=== PATIENT | male | born 1955 | race Caucasian/White ===

== ENCOUNTER 2025-04-18 17:59 | Inpatient (IN) | payer MEDICARE, OTHER, SELFPAY ==
[2025-04-18] VITALS (9 sets, daily range): BP systolic 173–234; BP diastolic 79–121; BMI 26.4; BMI 25.0
[2025-04-18 15:19] LABS: Hematocrit 41.0 % (39.0-52.0); Hemoglobin 13.5 g/dL (13.0-18.0); Mean Corp Hgb Conc. 32.9 g/dL (33.0-37.0); Mean Corpuscular Volume 89.3 fL (80.0-94.0); Nucleated Red Blood Cells % 0 % (-); Platelet Count 481 10^3/uL (130-400); Red Cell Dist. Width 12.0 % (11.5-14.5)
[2025-04-18 15:42] LABS: Troponin I 0.022 ng/ml
[2025-04-18 15:43] LABS: ALT (SGPT) 23 U/L (0-50); AST (SGOT) 29 U/L (17-59); Albumin 3.9 g/dl (3.5-5.0); Alkaline Phosphatase 93 U/L (38-126); Blood Urea Nitrogen 79 mg/dl (9-20); Calcium 9.2 mg/dl (8.4-10.2); Carbon Dioxide 19 mmol/L (22-30); Chloride 106 mmol/L (98-107); Glucose 113 mg/dl (70-99); Potassium 5.5 mmol/L (3.5-5.1); Sodium 137 mmol/L (135-145); Total Protein 6.7 g/dl (6.3-8.2); eGFR 9.30
--- NOTE | 2025-04-18 16:11 | ED.GENMED ---
History of Present Illness
<Rock Sun PA-C - Last Filed: 04/18/25 19:49>
General
Chief Complaint: Malaise
Time Seen by Provider: 04/18/25 15:55
History of Present Illness
History of Present Illness:
69-year-old male with no known past medical history presents to the emergency department upon referral from the [facility] due to severe hypertension and malaise. The patient reports feeling fatigued with general malaise for the
past 2 to 3 months. He denies any chest pain or shortness of breath. No prior history of hypertension. He does admit to difficulty urinating as well as difficulty emptying his bowels during this time as well, indicates that he has
significant nocturia and urinary dribbling. He does report weight loss is a product of poor p.o. intake. Denies illicit substance use, alcohol use, or [id number] NSAID use
Review of Systems
<Rock Sun PA-C - Last Filed: 04/18/25 19:49>
Review of Systems
Allergies reviewed?: Yes
All Other Systems: ROS reviewed and negative except as documented in HPI and ROS
Phy Exam
<Rock Sun PA-C - Last Filed: 04/18/25 19:49>
Physical Exam
Physical Exam:
GEN: Well appearing, NAD, WDWN
HEENT: Oral mucosa moist, no scleral icterus
Cardiac: Irregular, controlled rate, no murmur
Lung: No respiratory distress, no tachypnea, lungs clear to auscultation bilaterally
Abdomen: Moderately distended, grossly nontender, no rigidity
MSK: No gross deformity or injuries
Skin: Good color, no pallor or jaundice, no rashes
Neuro: AO x3, moves all extremities freely
Psych: Calm, cooperative
Course
<Rock Sun PA-C - Last Filed: 04/18/25 19:49>
Orders/Labs/Results
Orders:
Orders
04/18/25 14:53
EKG [Electrocardiogram (*1)] Urgent
Reason for Study: Abnormal EKG
EKG- Treatment ONCE
04/18/25 15:07
Complete Blood Count/With Diff Urgent
Comprehensive Metabolic Panel Urgent
Magnesium Urgent
Troponin I Urgent
04/18/25 16:10
Rodriguez Placement- Treatment ONCE
Reason for insertion: Acute Retention
0.9% Sodium Chloride 1000 ml [Nss] 1,000 ml IV BOLUS
Calcium Gluconate 1 gram/100mL [Calcium Gluconate] 1 gram in 100 ml IV ONCE
04/18/25 16:14
Tamsulosin [Flomax] 0.4 mg PO NOW STA
04/18/25 16:28
Urinalysis Reflex To Culture Urgent
Date Specimen was Collected: 04/18/25
Time Specimen was Collected: 16:19
Urine Microscopic Reflex Cult Urgent
Venous Blood Gas Urgent
%Oxygen/Room Air: 97
Urine Culture Urgent
SANDRA Source: U
Specimen Description:
Date Specimen was Collected: 04/18/25
Time Specimen was Collected: 16:19
04/18/25 17:31
Labetalol HCl [Trandate] 10 mg IV Q6HPRN PRN
04/18/25 17:32
Abdomen/Pelvis wo Contrast CT [CT Abd/pelvis Wo Iv Cont] Urgent
Comment:
Reason For Exam: ANGELINE, abdominal bloating
04/18/25 17:33
Admit/Transfer Patient As Directed
Co-Sign Provider:
Level of Care: Inpatient admission
Assign to:: Telemetry
Physician / Group: casey
Diagnosis: ANGELINE
Reason for Telemetry: Arrhythmia
Date to Stop Telemetry: 04/21/25
Time to Stop Telemetry: 11:00
Reason for Hospitalization: ANGELINE
Expected length of stay greater than two midnights?: Yes
ELOS- Estimated Length of Stay in days: 2
I certify the patient meets the requirements for IP care: Yes
04/18/25 17:34
Code Status As Directed
Resuscitation Status: Full Code
PRN Pain Medication Management As Directed
May give lesser potent ordered pain med per pt: Yes
preference::
Protocol:: Medication orders for pain may be administered in a
manner that supports deferring to patient preference
when the pt is:
- Requesting an ordered lesser potent pain medication.
Least to most potent pain medications are defined
as: acetaminophen < NSAID < tramadol < opioids
(morphine, oxycodone, hydromorphone).
- Requesting a lesser dose of the same medication IF
ORDERED.
- Requesting a less intrusive route of administration
if both routes are prescribed by the provider (PO <
IV).
04/18/25 17:51
Add On- LAB Routine
Tests Added?: mag
04/21/25 11:00
DC Protocol for Telemetry ONCE
Abnormal Lab Results
04/18/25 04/18/25
15:07 16:28
WBC 15.6 H 10^3/uL
(4.8-10.8)
RBC 4.59 L 10^6/uL
(4.70-6.10)
MCHC 32.9 L g/dL
(33.0-37.0)
Plt Count 481 H 10^3/uL
(130-400)
Abs Immat Gran (auto) 0.1 H 10^3/uL
(0-0.05)
Absolute Neuts (auto) 12.2 H 10^3/uL
(1.4-6.5)
Absolute Monos (auto) 1.7 H 10^3/uL
(0.1-0.6)
Immature Gran % 0.6 H %
(0-0.5)
Neutrophils % 78.2 H %
(42.2-75.2)
Lymphocytes % 9.2 L %
(20.5-51.1)
Monocytes % 11.1 H %
(1.7-9.3)
VBG pCO2 31 L mmHg
(35-48)
VBG pO2 184 H mmHg
(30-50)
VBG HCO3 19.6 L mmol/L
(22-27)
Potassium 5.5 H mmol/L
(3.5-5.1)
Carbon Dioxide 19 L mmol/L
(22-30)
BUN 79 H mg/dl
(9-20)
Creatinine 6.1 H* mg/dL
(0.7-1.3)
Glucose 113 H mg/dl
(70-99)
Magnesium 2.5 H mg/dl
(1.6-2.3)
Ur Occult Blood Reflex 3+ A
(Negative)
Leukocyte Esterase Rfl 2+ A
(Negative)
Urine RBC 3-6 A /HPF
(0-2)
Urine Bacteria (Reflex) Few A
(Negative)
04/18/25 15:07
04/18/25 15:07
Vital Signs
Initial and Last Documented VS:
Initial Vital Signs
Temp Pulse Resp BP Pulse Ox
97.9 F 57 18 234/98 98
04/18/25 14:59 04/18/25 14:59 04/18/25 14:59 04/18/25 14:59 04/18/25 14:59
Last Documented Vital Signs
Temp Pulse Resp BP Pulse Ox
97.9 F 96 15 190/85 95
04/18/25 14:59 04/18/25 18:30 04/18/25 18:30 04/18/25 18:30 04/18/25 18:30
<Chaparro Stovall, DO - Last Filed: 04/18/25 16:15>
Orders/Labs/Results
Orders:
Orders
04/18/25 14:53
EKG [Electrocardiogram (*1)] Urgent
Reason for Study: Abnormal EKG
EKG- Treatment ONCE
04/18/25 15:07
Complete Blood Count/With Diff Urgent
Comprehensive Metabolic Panel Urgent
Magnesium Urgent
Troponin I Urgent
04/18/25 16:10
Rodriguez Placement- Treatment ONCE
Reason for insertion: Acute Retention
0.9% Sodium Chloride 1000 ml [Nss] 1,000 ml IV BOLUS
Calcium Gluconate 1 gram/100mL [Calcium Gluconate] 1 gram in 100 ml IV ONCE
04/18/25 16:14
Tamsulosin [Flomax] 0.4 mg PO NOW STA
04/18/25 16:28
Urinalysis Reflex To Culture Urgent
Date Specimen was Collected: 04/18/25
Time Specimen was Collected: 16:19
Urine Microscopic Reflex Cult Urgent
Venous Blood Gas Urgent
%Oxygen/Room Air: 97
Urine Culture Urgent
SANDRA Source: U
Specimen Description:
Date Specimen was Collected: 04/18/25
Time Specimen was Collected: 16:19
04/18/25 17:31
Labetalol HCl [Trandate] 10 mg IV Q6HPRN PRN
04/18/25 17:32
Abdomen/Pelvis wo Contrast CT [CT Abd/pelvis Wo Iv Cont] Urgent
Comment:
Reason For Exam: ANGELINE, abdominal bloating
04/18/25 17:33
Admit/Transfer Patient As Directed
Co-Sign Provider:
Level of Care: Inpatient admission
Assign to:: Telemetry
Physician / Group: veldanda
Diagnosis: ANGELINE
Reason for Telemetry: Arrhythmia
Date to Stop Telemetry: 04/21/25
Time to Stop Telemetry: 11:00
Reason for Hospitalization: ANGELINE
Expected length of stay greater than two midnights?: Yes
ELOS- Estimated Length of Stay in days: 2
I certify the patient meets the requirements for IP care: Yes
04/18/25 17:34
Code Status As Directed
Resuscitation Status: Full Code
PRN Pain Medication Management As Directed
May give lesser potent ordered pain med per pt: Yes
preference::
Protocol:: Medication orders for pain may be administered in a
manner that supports deferring to patient preference
when the pt is:
- Requesting an ordered lesser potent pain medication.
Least to most potent pain medications are defined
as: acetaminophen < NSAID < tramadol < opioids
(morphine, oxycodone, hydromorphone).
- Requesting a lesser dose of the same medication IF
ORDERED.
- Requesting a less intrusive route of administration
if both routes are prescribed by the provider (PO <
IV).
04/18/25 17:51
Add On- LAB Routine
Tests Added?: mag
04/21/25 11:00
DC Protocol for Telemetry ONCE
Abnormal Lab Results
04/18/25 04/18/25
15:07 16:28
WBC 15.6 H 10^3/uL
(4.8-10.8)
RBC 4.59 L 10^6/uL
(4.70-6.10)
MCHC 32.9 L g/dL
(33.0-37.0)
Plt Count 481 H 10^3/uL
(130-400)
Abs Immat Gran (auto) 0.1 H 10^3/uL
(0-0.05)
Absolute Neuts (auto) 12.2 H 10^3/uL
(1.4-6.5)
Absolute Monos (auto) 1.7 H 10^3/uL
(0.1-0.6)
Immature Gran % 0.6 H %
(0-0.5)
Neutrophils % 78.2 H %
(42.2-75.2)
Lymphocytes % 9.2 L %
(20.5-51.1)
Monocytes % 11.1 H %
(1.7-9.3)
VBG pCO2 31 L mmHg
(35-48)
VBG pO2 184 H mmHg
(30-50)
VBG HCO3 19.6 L mmol/L
(22-27)
Potassium 5.5 H mmol/L
(3.5-5.1)
Carbon Dioxide 19 L mmol/L
(22-30)
BUN 79 H mg/dl
(9-20)
Creatinine 6.1 H* mg/dL
(0.7-1.3)
Glucose 113 H mg/dl
(70-99)
Magnesium 2.5 H mg/dl
(1.6-2.3)
Ur Occult Blood Reflex 3+ A
(Negative)
Leukocyte Esterase Rfl 2+ A
(Negative)
Urine RBC 3-6 A /HPF
(0-2)
Urine Bacteria (Reflex) Few A
(Negative)
04/18/25 15:07
04/18/25 15:07
Vital Signs
Initial and Last Documented VS:
Initial Vital Signs
Temp Pulse Resp BP Pulse Ox
97.9 F 57 18 234/98 98
04/18/25 14:59 04/18/25 14:59 04/18/25 14:59 04/18/25 14:59 04/18/25 14:59
Last Documented Vital Signs
Temp Pulse Resp BP Pulse Ox
97.9 F 96 15 190/85 95
04/18/25 14:59 04/18/25 18:30 04/18/25 18:30 04/18/25 18:30 04/18/25 18:30
<Rock Sun PA-C - Last Filed: 04/18/25 19:49>
MDM/Problems Addressed
MDM/Problems Addressed:
Patient's acute renal failure is likely obstructive due to BPH with retention. Rodriguez was placed with greater than 1 L of urine output. Blood pressure did transiently improve in the ED, at this time no evidence for endorgan damage as I do not
suspect that his nephropathy is hypertensive in nature and thus we will avoid IV antihypertensives as his blood pressure elevation is likely longstanding. Will be admitted to the hospitalist service for further management
<Rock Sun PA-C - Last Filed: 04/18/25 19:49>
Comment
Comment:
EKG independently interpreted by me shows NSR w/ bigeminy PVCs
*Pulse Oximetry
SaO2: 98
Oxygen Mode of Delivery: Room air
Patient hypoxic: no
*Critical Care Note
Total Time (30-74mins, 75-104mins- exclusive of procedures): Not Applicable
ED Attending Note
<Rock Sun PA-C - Last Filed: 04/18/25 19:49>
-
Portions of this chart may have been created with voice recognition software.� Occasional wrong word or��sound alike� substitutions may have occurred due to the inherent limitations of voice recognition software.
<Chaparro Stovall DO - Last Filed: 04/18/25 16:15>
ED Attending Note
Patient seen and examined by attending physician: Yes
I performed the substantive portion of visit, reviewed & personally made and approve the management plan that is documented in note by myself or JAVY.: Yes
ED Attending Note:
I have seen and evaluated the patient with a [id number] encounter. I have spoken to the advance practicer provider and involved in the medical history, the physical exam, medical decision making.
Evaluation and management service: agree unless noted differently below.
Results interpretation: agree unless noted differently below.
Focused HPI: 69-year-old male presenting for generalized weakness and fatigue and intermittent urinary incontinence. Patient was seen at his doctor's office and sent to the emergency department
Physical exam: Sitting bed comfortably. Palpable bladder
Medical Decision Making: Patient is exhibiting signs of overflow incontinence. Will place urinary catheter. Patient has acute renal failure which is likely prerenal from likely prostate issues. Will give dose of Flomax and ultimately admit
Discharge Plan
Departure
Patient Disposition: Admit
Date of Disposition: 04/18/25
Time of Disposition: 16:59
Admit to: Telemetry
Presentation/result/management discussed w/ accepting MD/DO: Hospitalist
Discharge Problem:
Acute renal failure, Acute hyperkalemia, Acute urinary retention
Interventions
Interventions:
*Risk Screen - Suicide Last Done: 04/18/25 14:59
*General Assessment Last Done: 04/18/25 14:59
*Neglect/Abuse Screening Last Done: 04/18/25 14:59
*ED- Fall Risk Assessment Last Done: 04/18/25 14:59
*ED COVID-19 Vaccine History Last Done: 04/18/25 14:59
*ED Influenza Vaccine History Last Done: 04/18/25 14:59
[2025-04-18] MEDS: FLOMAX 0.4 MG PO (16:19)
[2025-04-18] MEDS: CALCIUM GLUCONATE 100 IV (16:19)
[2025-04-18] MEDS: NSS 1000 IV ×2 (16:28→20:40)
[2025-04-18 16:32] LABS: Venous Blood Gas B.E. -4.0 mmol/L (-4 to +4); Venous Blood Gas O2 Sat % 100.0 %
[2025-04-18 16:44] LABS: Urine Character Clear (Clear)
[2025-04-18 16:51] LABS: Urine Squamous Cell 0-2 /LPF (Few)
--- NOTE | 2025-04-18 17:44 | HPS.HSE ---
Addendum entered and electronically signed by Pedro Wade MD 04/18/25 21:02:
CT abdomen pelvis shows very large 14.6 cm left renal cell carcinoma. 1.9 cm mass in the right kidney possibly renal cell carcinoma. Metastatic retroperitoneal lymphadenopathy. Moderate acute right hydroureteronephrosis and moderate acute left
hydroureter secondary to bilateral ureteral obstructions at the level of the urinary bladder. Severe thickening of the urinary bladder suggesting malignancy. 2.19 m mass protruding posteriorly for the prostate gland suggesting prostate cancer.
5.1 cm lytic osseous metastasis in the sacrum extending into the sacral spinal canal.
Discussed findings with urology who thinks that this appears to be metastatic renal cell carcinoma and also advanced prostate cancer given sacral bone lesion obstruction of both ureters. Recommends checking PSA in the a.m. Maintain Rodriguez catheter.
IR to be consulted for bilateral PCN placement given ANGELINE and obstructive uropathy and stent placement highly likely to fail.
Oncology consulted.
Addendum entered and electronically signed by Pedro Wade MD 04/18/25 17:52:
Patient with urinary retention on bladder scan. Greater than 1L drainage after placement of Rodriguez.
Original Note:
Family Physician
-
Family Physician: * NONE
Chief Complaint
-
urinary retention
History of Present Illness
69-year-old male with past medical history of slight hypertension, periodontal disease presenting from residency clinic due to severe hypertension and malaise. He does not see doctors. Malaise has been ongoing for several months. He has lost 20
pounds in the past several months with decreased appetite. He has been having abdominal bloating and distention and generalized discomfort. He has been having urinary retention and strains to urinate and has frequent urination at nighttime with
dribbling. A few months ago he had some rectal bleeding only 1 time.
He states that he has a history of high blood blood that was only slightly high previously. Never took any medication.
He denies any chest pain or shortness of breath or palpitations or dizziness.
His sister had breast cancer. His father had bladder cancer.
He denies smoking or drugs. Drinks alcohol very rarely.
Medical History
Past Medical History
Past Medical History: Reports Other (slight hypertension)
Past Surgical History: Reports Other (Back cyst removal)
Social History
Tobacco: Non-smoker
Alcohol: None
Drug: None
Family History
Family History: Not pertinent
Allergies / Home Medications
Allergies reflects when Allergies were last updated in [facility].
Home Medications with original date entered in [facility]
Allergy/Medication List:
Allergies
Allergy/AdvReac Type Severity Reaction Status Date / Time
No Known Allergies Allergy Unverified 04/18/25 14:59
Home Medications
Vital Prostate Support 2 tab PO DAILY Supplement 04/18/25
Review of Systems
-
History Source: Patient
A 12 point ROS was completed and negative except as noted: Yes
Constitutional: Reports No Symptoms
EENT: Reports No Symptoms
Respiratory: Reports No Symptoms
Cardiac: Reports No Symptoms
Abdomen/GI: Reports See HPI
: Reports See HPI
Musculoskeletal: Reports No Symptoms
Skin: Reports No Symptoms
Neurological: Reports No Symptoms
Endocrine: Reports No Symptoms
Hematologic/Lymphatic: Reports No Symptoms
Psych: Reports No Symptoms
Physical Exam
Vital Signs
Vital Signs
Temp Pulse Resp BP Pulse Ox
97.9 F 110 17 222/94 96
04/18/25 14:59 04/18/25 17:30 04/18/25 17:30 04/18/25 17:00 04/18/25 17:30
Physical Exam
General: Well Developed, Well Nourished and No Apparent Distress
HEENT: NormoCephalic, Moist mucous membranes and Atraumatic
Respiratory: Clear
Cardiac: S1/S2 and Regular Rhythm; No Murmur or Rub
GI: Soft, Non Tender, Non Distended and Normal Bowel Sounds; No Organomegaly
Rectal: Deferred by Provider
Musculoskeletal: No Clubbing, No Cyanosis and No Edema
Skin: No Rash
Neuro: Nonfocal/grossly intact
Laboratory Results
-
04/18/25 15:07
04/18/25 15:07
Laboratory Results
Total Bilirubin 0.5 mg/dl (0.2-1.3) 04/18/25 15:07
AST 29 U/L (17-59) 04/18/25 15:07
ALT 23 U/L (0-50) 04/18/25 15:07
Alkaline Phosphatase 93 U/L (38-126) 04/18/25 15:07
Troponin I 0.022 ng/ml 04/18/25 15:07
Data Reviewed
-
Lab Data: Labs Reviewed by me
Old Records: Reviewed
Impression/Plan
-
IMPRESSION:
PLAN:
# Acute kidney injury likely postobstructive likely BPH
# Hyperkalemia
-Potassium 5.5
-Urinalysis unremarkable
-IV fluids
-Tamsulosin started
- Rodriguez catheter placed
- Check CT abdomen pelvis without IV contrast due to concern for underlying obstructive process/malignancy
# Hypertensive urgency likely from urinary retention/longstanding hypertension
-No symptoms associated with
- EKG shows sinus tachycardia with frequent PVCs suggesting bigeminy
- As needed labetalol
- Check echo
# Bigeminy possibly secondary to hyperkalemia
-No symptoms
- Check magnesium
- Cardiology consulted
# Isolated rectal bleeding few months ago
- Concern for underlying malignancy
# Weight loss
- Concern for underlying malignancy
History of constipation
- Had bowel movement today and every day this week
Periodontal disease
Full code
DVT prophylaxis�heparin
Regular diet
[2025-04-18] MEDS: TRANDATE 10 MG IV ×2 (18:05→20:37)
[2025-04-18 18:26] LABS: Magnesium 2.5 mg/dl (1.6-2.3)
--- NOTE | 2025-04-18 22:44 | PTCARENOTE ---
2029-pt admitted to [facility]-2, pt ambulated to bed, placed on tele #24, oriented to call renee and reviewed poc. Pt's b/p 198/96-98, finney draining bloody urine. SOLDER TECHNICIAN notified, pictures of finney drainage sent. Trandate 10mg ivp given. see aug. Repeat b/p
at 2225 174/79-100. clots noted in finney, rn medical inpatient services notified and picture sent.
--- NOTE | 2025-04-18 23:04 | CONS.URO ---
Consultation
-
Date/Time Consultation Requested: 04/18
Date/Time Consultation Performed: 04/18
Requesting Provider: Hospitalist
Performing Provider: Celestina
Reason for Consultation: large left renal mass w/ RP LAD, prostate mass w/ osseous metastasis
Medical History
History of Present Illness
69M referred from [facility] resident clinic due to severe HTN and malaise (of several months' duration).
Notes 20 lb weight loss in last several months with dereased appetite.
Noted abdominal bloating, distention and generalized discomfort.
Notes voiding symptoms:
+ straining to void
+ nocturia
+ dribbling
+ rectal bleeding x1 (few months prior)
Of note, patient 'does not see doctors.'
Has not had regular medical care of preventative care (prostate cancer, etc).
Past Medical History
Past Medical History: HTN
Past Surgical History: None
Social History
Tobacco: Non-smoker
Alcohol: Occasional
Drug: None
Personal:
Living: With Family
Family History
Family History: Cancer (mother - breast cancer, father - bladder cancer)
Allergies/Home Medications
Allergies
Allergy/AdvReac Type Severity Reaction Status Date / Time
No Known Allergies Allergy Unverified 04/18/25 14:59
Home Medications
�Medication �Instructions �Recorded �Confirmed �Type
Vital Prostate Support 2 tab PO DAILY Supplement 04/18/25 04/18/25 History
Review of Systems
-
History Source: Patient and Family
A 12 point Review of Systems was completed except as noted: Yes
Constitutional: Reports Weight Loss and Fatigue
EENT: Reports No Symptoms
Respiratory: Reports No Symptoms
Cardiac: Reports No Symptoms
Abdomen/GI: Reports Anorexia
: Reports Frequency and Difficulty Voiding
Musculoskeletal: Reports No Symptoms
Skin: Reports No Symptoms
Neurological: Reports No Symptoms
Endocrine: Reports No Symptoms
Hematologic/Lymphatic: Reports No Symptoms
Psych: Reports No Symptoms
Physical Exam
Vital Signs
Vital Signs
Temp Pulse Resp BP Pulse Ox
98.9 F 100 16 174/79 97
04/18/25 20:07 04/18/25 22:23 04/18/25 20:07 04/18/25 22:23 04/18/25 20:07
Lab / Testing Results
Laboratory Results
04/18/25 15:07
04/18/25 15:07
Physical Exam
General: Poor Appetite
HEENT: Normocephalic and Anicteric
Respiratory: Non Labored Respirations
Cardiac: S1/S2
Breast: N/A
GI: Soft, Non Tender and Non Distended
Rectal: Deferred by Provider
Genito-urinary: No Costovertebral Tend, Bloody Urine and Rodriguez Catheter
Musculoskeletal: No Edema
Neuro: AO x 3, No Motor Deficits and Nonfocal/Grossly Intact
Hematologic/Lymphatic: No Lymphadenopathy
Psych: Calm and Intact Judgement
Assessment / Plan
-
ANGELINE
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
Acute urinary retention
Hematuria
Suspected metastatic left RCC - RP LAD
Small right renal mass
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
- Maintain Rodriguez catheter to drainage
- Trend BMP for post-obstructive diuresis
- Trend Cr
- PSA w/ AM labs
- Medical Oncology consult for suspected metastatic RCC and metastatic prostate cancer
- IR consult for evaluation of bilateral PCN placement (stent placement w/ high likelihood of failure due to malignant extrinsic compression of ureters from prostate cancer)
Data Reviewed
-
Total Time Spent with Patient (in minutes): 40
CT Scan: Image personally visualized and interpreted, Report Reviewed by Me, Discussed with Physician and Discussed with Patient
Lab Data: Labs Reviewed, Discussed with Physician and Discussed with Patient
Old Records: Reviewed
[2025-04-19] VITALS (8 sets, daily range): BP systolic 131–178; BP diastolic 69–107; BMI 24.7
--- NOTE | 2025-04-19 03:33 | PTCARENOTE ---
0230 LITERACY TEACHER notified Tele tracing Sinus alexandru to Sinus tach with vent bigeminy. pt asymptomatic. Also reviewed labs, elevated K and elevated Mag. Pt in for 0600 labs and cardiology consulted.
[2025-04-19 05:40] LABS: Hematocrit 39.8 % (39.0-52.0); Hemoglobin 12.8 g/dL (13.0-18.0); Mean Corp Hgb Conc. 32.2 g/dL (33.0-37.0); Mean Corpuscular Volume 90.9 fL (80.0-94.0); Nucleated Red Blood Cells % 0 % (-); Platelet Count 436 10^3/uL (130-400); Red Cell Dist. Width 11.9 % (11.5-14.5)
[2025-04-19] MEDS: NSS 1000 IV ×2 (05:48→18:32)
[2025-04-19 06:10] LABS: ALT (SGPT) 20 U/L (0-50); AST (SGOT) 25 U/L (17-59); Albumin 3.5 g/dl (3.5-5.0); Alkaline Phosphatase 87 U/L (38-126); Blood Urea Nitrogen 65 mg/dl (9-20); Calcium 9.1 mg/dl (8.4-10.2); Carbon Dioxide 23 mmol/L (22-30); Chloride 111 mmol/L (98-107); Estimated Creatinine Clearance 17 ml/min; Glucose 112 mg/dl (70-99); Magnesium 2.3 mg/dl (1.6-2.3); Potassium 5.5 mmol/L (3.5-5.1); Sodium 141 mmol/L (135-145); Total Protein 6.0 g/dl (6.3-8.2); eGFR 13.05
--- NOTE | 2025-04-19 07:25 | W.PN.URO.CBU ---
Addendum entered and electronically signed by Francis Oscar MD 04/19/25 12:35:
Of note - will consider Rodriguez catheter removal after bilateral PCN placement by IR before discharge.
Will need outpatient cystoscopy to evaluate bladder (r/o urothelial carcinoma vs. extension of prostate cancer).
Original Note:
Today's Communication / Plan
-
- Maintain Rodriguez catheter to drainage
- Trend lytes/Cr for post-obstructive diuresis
- PSA, JOE, and CT imaging c/w metastatic prostate cancer
- Medical Oncology consult for suspected metastatic RCC and metastatic prostate cancer
- Pending IR evaluation for bilateral PCN placement (stent placement w/ high likelihood of failure due to malignant extrinsic compression of ureters from prostate cancer)
D/w patient this AM.
D/w RN.
Assessment / Plan
-
ARF
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
Acute urinary retention
Hematuria
Suspected metastatic left RCC - RP LAD
Small right renal mass
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
Cr downtrending w/ catheter decompression
JOE performed this AM => hard, nodular prostate gland w/ extension into rectum c/w prostate tumor
PSA 384 (04/19)
Diagnosis
-
Date of Service: April 19, 2025
-
Patient Diagnosis:
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
Acute urinary retention
Hematuria
Suspected metastatic left RCC - RP LAD
Small right renal mass
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
Subjective
-
Patient feeling 'much better' after catheter placement and IVFs.
NPO for IR procedure today.
Urine jose to pink in tubing - no clots.
Objective
-
Vital Signs
Temp Pulse Resp BP Pulse Ox
98.4 F 56 17 168/93 97
04/19/25 07:22 04/19/25 07:22 04/19/25 07:22 04/19/25 07:22 04/19/25 07:22
Intake and Output
04/18/25 04/19/25 04/20/25
06:59 06:59 06:59
Intake Total 1480 / 1480
Output Total 4980 / 4980
Balance -3500 / -3500
Intake:
Oral fluids 480 / 480
IV fluids (Total) 1000 / 1000
Output:
Urine, Rodriguez 4980 / 4980
Laboratory Results
04/19/25 05:08
04/19/25 05:08
Physical Exam
-
General - well developed, well nourished, no acute distress
Abdomen - soft, non-tender, non-distended
- Rodriguez catheter w/ jose to pink UOP w/o clots
JOE - HARD, NODULAR prostate gland c/w prostate cancer
Skin - warm & dry with no rash
Neuro - AOx3, no motor deficits
Extremities - no clubbing, no cyanosis, no edema
Care Review
Data Reviewed
Discussed with: Hospitalist and Nursing
CT Scan: Report Pers Reviewed and Image Pers Reviewed
Total Time Spent with Patient (in minutes): 35
--- NOTE | 2025-04-19 07:58 | W.PN.HOSP.TC ---
Addendum entered and electronically signed by Neva Thompson MD 04/19/25 19:09:
I saw and evaluated the patient independently. I reviewed and discussed the resident�s note and agree with findings and plan as documented by Dr. Frey.
GENERAL: well developed, well nourished, male in no apparent distress
HEENT:NC/AT
HEART: regular rate and rhythm, +S1, +S2
LUNGS : clear to auscultation bilaterally
ABDOM: soft, nontender, distended, + bowel sounds
EXT: no cyanosis, clubbing, or edema
NEUROLOGIC: grossly intact
: finney cath with bloody urine
Bilateral/kidney/prostate masses with lytic osseous lesions, and bladder thickening--highly suspicious for malignancy--rare to have 3 separate primary cancers (presuming renal cell, prostate, urothelial) vs primary with mets to others?--apprec
urology and oncology--spoke with IR, going for left kidney biopsy in AM--NPO post midnight--PSA 384--will need staging CTs--chest CT with tiny nodules--will likely need PET scan as outpt
Acute kidney injury-- postobstructive most likely with bilateral hydronephrosis--cont finney and IVF--creat on admission was 6.1--this AM down to 4.6--for right PCN in AM--cont to follow creat--cont tamsulosin
Hyperkalemia--likely from ANGELINE due to obstruction--no need for HD--cont IVF--considering Lokelma
Hypertensive urgency--BPs high (224/94)--again likely due to renal issues--cont amlodipine and PRN hydralazine--follow numbers--apprec cards--ECHO WNL
Bigeminy possibly secondary to hyperkalemia--resolved without intervention
Hematuria/Isolated rectal bleeding few months ago�could have been hematuria--Likely due to renal masses, prostate mass, and possible bladder cancer- trend CBC
Hx constipation- Had bowel movement today and every day this week
Hx Periodontal disease
code status--Full code
DVT prophylaxis�heparin discontinued
Original Note:
Today's Communication/Plan
-
Urology and oncology consulted for new kidney and prostate masses, as well as possible bladder malignancy given thickened bladder wall.
� Added CT chest for cancer staging
� PSA 384 high
Postrenal ANGELINE (hydroureteronephrosis with obstruction at the level of the bladder): Finney, tamsulosin, fluids
- Bilateral percutaneous nephrostomy stents anticipated today by IR
Cardiology consulted for bigeminy.
N.p.o. for IR
Hyperkalemia: Monitor CMP for resolution with addressing obstruction.
Hypertension: Amlodipine 5 mg daily and hydralazine 10 mg IV Q6 as needed
Assessment / Plan
Assessment / Plan
IMPRESSION:
Mr. Carter Stovall is a pleasant 69-year-old male with past medical history of mild hypertension, periodontal disease, who presented from residency clinic due to severe hypertension and malaise. He does not see doctors. Malaise has been ongoing for
several months. He has lost 20 pounds in the past several months with decreased appetite. He has been having abdominal bloating and distention and generalized discomfort. He has been having urinary retention and strains to urinate and has
frequent urination at nighttime with dribbling. A few months ago he had some rectal bleeding only 1 time.
He states that he has a history of high blood blood that was only slightly high previously. Never took any medication.
He denies any chest pain or shortness of breath or palpitations or dizziness.
His sister had breast cancer. His father had bladder cancer.
He denies smoking or drugs. Drinks alcohol very rarely.
ED Course:
CT A/P noncontrast:
1. VERY LARGE 14.6 cm LEFT RENAL CELL CARCINOMA.
2. 1.9 cm mass in the right kidney (possibly renal cell carcinoma).
3. Metastatic retroperitoneal lymphadenopathy.
4. MODERATE ACUTE RIGHT HYDROURETERONEPHROSIS and MODERATE ACUTE LEFT HYDROURETER secondary to bilateral ureteral obstructions at the level of the urinary bladder.
5. Severe diffuse thickening of the urinary bladder wall suggesting malignancy (URINARY BLADDER UROTHELIAL CARCINOMA). Finney catheter in the urinary bladder.
6. 2.9 cm mass protruding posteriorly from the prostate gland suggesting PROSTATE CANCER.
7. Small bilateral adrenal adenomas.
8. Severe diverticulosis in the sigmoid colon.
9. Varicoid bronchiectasis in the left lower lobe with a 2.5 cm pulmonary nodule which is likely peripheral endobronchial impaction (less likely pulmonary metastatic disease).
10. 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
PLAN:
#Bilateral kidney masses, prostate mass with lytic osseous lesions, and bladder thickening
Urology consulted
� PSA 384 high
Oncology consulted
� CT chest for cancer staging
CT abdomen pelvis without IV/PO contrast due to concern for underlying obstructive process/malignancy:
1. VERY LARGE 14.6 cm LEFT RENAL CELL CARCINOMA.
2. 1.9 cm mass in the right kidney (possibly renal cell carcinoma).
3. Metastatic retroperitoneal lymphadenopathy.
4. MODERATE ACUTE RIGHT HYDROURETERONEPHROSIS and MODERATE ACUTE LEFT HYDROURETER secondary to bilateral ureteral obstructions at the level of the urinary bladder.
5. Severe diffuse thickening of the urinary bladder wall suggesting malignancy (URINARY BLADDER UROTHELIAL CARCINOMA). Finney catheter in the urinary bladder.
6. 2.9 cm mass protruding posteriorly from the prostate gland suggesting PROSTATE CANCER.
7. Small bilateral adrenal adenomas.
8. Severe diverticulosis in the sigmoid colon.
9. Varicoid bronchiectasis in the left lower lobe with a 2.5 cm pulmonary nodule which is likely peripheral endobronchial impaction (less likely pulmonary metastatic disease).
10. 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
# Acute kidney injury; postobstructive
Urinalysis unremarkable
- IV fluids
- Tamsulosin started
- Finney catheter placed
IR consulted
� Bilateral percutaneous nephrostomy stent placement anticipated today. N.p.o.
# Hyperkalemia
Potassium 5.5
� Likely due to ANGELINE from bilateral hydroureter ureteral nephrosis (level obstruction of bladder)
- Planned to give Lokelma but held due to n.p.o. for IR
� Considering IV calcium gluconate, IV insulin with glucose, albuterol inhaler, patiromer if hyperkalemia does not resolve
� Telemetry
# Hypertensive urgency
Likely from renal masses. No symptoms associated with hypertension
� Since his heart rate was low on labetalol PRN, started amlodipine 5 mg PO daily and hydralazine PRN.
- Echo pending
� Considering consulting nephrology in the future if ANGELINE does not resolve adequately with post-renal obstruction relief with finney and anticipated percutaneous nephrostomy tubes
# Bigeminy possibly secondary to hyperkalemia
EKG shows sinus tachycardia with frequent PVCs suggesting bigeminy
No symptoms
Magnesium within normal limits
- Cardiology consulted
#Hematuria
#Isolated rectal bleeding few months ago�could have been hematuria
Likely due to renal masses, prostate mass, and possible bladder cancer
- trend CBC
Hx constipation
- Had bowel movement today and every day this week
Hx Periodontal disease
Full code
DVT prophylaxis�heparin
N.p.o. for percutaneous stent placement
Anticipated Discharge: > 48 hours
Subjective/Interval History
-
Date of Service: April 19, 2025
No acute events overnight. Patient denies chest pain, abdominal pain, pain anywhere else, palpitations, shortness of breath, lightheadedness, or difficulty voiding.
Since Finney bag had bloody urine, patient was asked if he has noticed bloody urine recently. He denies noting bloody urine recently.
Objective Data
-
Labs:
Laboratory Results
04/18/25 04/18/25 04/19/25
15:07 16:28 05:08
WBC 15.6 H 13.1 H
RBC 4.59 L 4.38 L
Hgb 13.5 12.8 L
Hct 41.0 39.8
MCV 89.3 90.9
MCH 29.4 29.2
MCHC 32.9 L 32.2 L
RDW 12.0 11.9
Plt Count 481 H 436 H
MPV 9.9 9.9
Abs Immat Gran (auto) 0.1 H 0.1 H
Absolute Neuts (auto) 12.2 H 10.6 H
Absolute Lymphs (auto) 1.4 1.2
Absolute Monos (auto) 1.7 H 1.2 H
Absolute Eos (auto) 0.1 0.1
Absolute Basos (auto) 0.0 0.0
Immature Gran % 0.6 H 0.8 H
Neutrophils % 78.2 H 80.5 H
Lymphocytes % 9.2 L 9.1 L
Monocytes % 11.1 H 9.0
Eosinophils % 0.6 0.4
Basophils % 0.3 0.2
Nucleated RBC % 0 0
VBG pH 7.41
VBG pCO2 31 L
VBG pO2 184 H
VBG HCO3 19.6 L
VBG O2 Sat (Jammie) 100.0
VBG Base Excess -4.0
VBG O2 Therapy
Sodium 137 141
Potassium 5.5 H 5.5 H
Chloride 106 111 H
Carbon Dioxide 19 L 23
BUN 79 H 65 H
Creatinine 6.1 H* 4.6 H*
Estimated Creat Clear 17
eGFR 9.30 13.05
Glucose 113 H 112 H
Calcium 9.2 9.1
Magnesium 2.5 H 2.3
Total Bilirubin 0.5 0.5
AST 29 25
ALT 23 20
Alkaline Phosphatase 93 87
Troponin I 0.022
Total Protein 6.7 6.0 L
Albumin 3.9 3.5
Urine Color Yellow
Urine Clarity Clear
Urine pH 5.0
Ur Specific Robinson 1.010
Urine Ketones Negative
Ur Occult Blood Reflex 3+ A
Urine Nitrite (Reflex) Negative
Urine Bilirubin Negative
Urine Urobilinogen Negative
Leukocyte Esterase Rfl 2+ A
Urine RBC 3-6 A
Urine WBC (Reflex) 6-10
Ur Squamous Epith Cells 0-2
Urine Bacteria (Reflex) Few A
Urine Glucose Negative
Urine Albumin (Reflex) Negative
Vital Signs:
Vital Signs
Temp Pulse Resp BP Pulse Ox
98.4 F 56 17 168/93 97
04/19/25 07:22 04/19/25 07:22 04/19/25 07:22 04/19/25 07:22 04/19/25 07:22
I&O
04/18/25 04/19/25 04/20/25
06:59 06:59 06:59
Intake Total 1480 / 1480
Output Total 4980 / 4980
Balance -3500 / -3500
Review of Systems
-
History Source: Patient
All other systems: Reviewed and negative
Physical Exam
-
General: Well Developed, Well Nourished, No Apparent Distress and Comfortable
HEENT: Normocephalic, Atraumatic, Anicteric, Nose Appears Normal and Ears Appear Normal
Respiratory: Clear to Auscultation
Cardiac: Irregular Rhythm (Persistent bigeminy)
GI: Soft, Nontender, Nondistended and Normal Bowel Sounds
Musculoskeletal: No Clubbing, No Cyanosis and No Edema
Skin: Warm and Dry
Neuro: Awake and Alert
Psych: Calm
[2025-04-19 08:27] LABS: PSA, Total - Screen 384.00 ng/ml (0.0-4.0)
[2025-04-19 08:52] LABS: INR 1.13; PT 14.8 Sec (11.4-14.6)
--- NOTE | 2025-04-19 09:16 | CON.CAR ---
Addendum entered and electronically signed by Pablo Medley DO 04/19/25 17:50:
I saw and examined the patient.
The Legal Administrator's note was reviewed and I agree with the note.
Comment:
Plan:
Patient with newly diagnosed prostate cancer with suspected metastasis complicated by urinary obstruction with need for bilateral ureteral stenting.
Patient had an episode of PVCs with ventricular bigeminy on the monitor. This has resolved without intervention.
If he has recurrent PVCs or ventricular bigeminy, could consider beta-josé miguel therapy, however he currently does not require treatment at this time. He does have sinus bradycardia on telemetry.
Check echo to evaluate for structural heart disease.
He was started on Norvasc by the primary service for hypertension. If he requires beta-josé miguel therapy, may need to hold calcium channel josé miguel therapy to give room for blood pressure.
Continue workup of his malignancy.
Discussed with his at bedside.
Original Note:
Consultation
Consultation Request
Date/Time Consultation Requested: 04/18/2025 at 1948
Date/Time Consultation Performed: 04/19/2025 at 1100
Requesting Provider: Dr. Thompson
Performing Provider: Dr. Medley
Reason for Consultation: Frequent PVCs
Medical History
-
History of Present Illness:
Patient was admitted with ANGELINE and suspected metastatic prostate cancer, cardiology is now consulted for PVCs. Patient himself evaluated at [facility] urgent care on 04/16/2025 for symptoms of fatigue, chills, decreased urination and weight loss.
Immediate workup was deferred to outpatient given concern for possible malignancy. Patient was seen by the [facility] primary care resident in their office on 04/18/2025 and was HTN at 220/98 and ECG showed frequent PVCs. Patient presented to the ER for
evaluation and was admitted after CT scan showed suspected malignant masses in the prostate extending into the bladder, rectum and metastatic disease into the sacrum. Repeat ECG showed PVCs and bigeminy. Telemetry has showed sinus bradycardia and
at other times PVCs with bigeminy. Patient denies any palpitations, chest pain or SOB. Patient chops his own firewood and has been chopping firewood and stacking it on his own without any chest pain or SOB, although he is more fatigued. He can go
up and down the stairs in his home without any symptoms. No previous cardiac testing. He used to work as a grade school teacher.
PMH:
None according to patient, although he does not follow with a primary care provider
Past Medical History
Past Medical History: Other (In HPI)
Past Surgical History: None
Social History
Tobacco: Non-Smoker
Alcohol: Occasional
Drug: None
Personal:
Living: With Family
Employment: Retired (He is a retired grade school teacher, he worked at [employer] right before he retired)
Family History
Family History: Cancer (Mother had ovarian cancer, father had bladder cancer)
Allergies / Home Medications
Allergy/AdvReac Type Severity Reaction Status Date / Time
No Known Allergies Allergy Unverified 04/18/25 14:59
�Medication �Instructions �Recorded �Confirmed �Type
Vital Prostate Support 2 tab PO DAILY Supplement 04/18/25 04/18/25 History
Review of Systems
-
History Source: Patient and Family ( sitting at bedside helping with HPI)
All other systems: Negative unless noted
Physical Exam
Vital Signs
Temp Pulse Resp BP Pulse Ox
98.4 F 56 17 168/93 97
04/19/25 07:22 04/19/25 07:22 04/19/25 07:22 04/19/25 07:22 04/19/25 07:22
GEN: NAD, AAO x 3
HEENT: EOMI, MMM
LUNGS: RA. CTA B/L, no wheeze
CV: Sinus bradycardia on telemetry. Reg, S1/S2, no murmur
ABD: Mildly distended, soft
EXT: No edema B/L LE, varicose veins B/L LE
NEURO: Gross non-focal
SKIN: No rash
Lab Results
04/19/25 05:08
04/19/25 05:08
Troponin I 0.022 ng/ml 04/18/25 15:07
Impression / Plan
-
PCP: None, saw [facility] primary care residency program on day of admission for new patient visit
Cardiology: None prior to admission
Impression:
Admitted with ANGELINE, weight loss and concern for malignancy 04/18/2025
ANGELINE
Urinary obstruction with B/L UVJ obstruction and hydroureteronephrosis due to malignant extrinsic compression from prostate CA
Suspected prostate CA with metastasis into the bladder, rectum and sacrum
Hyperkalemia
PVCs and bigeminy
HTN
Echo 04/19/2025: Study pending
Plan:
-Patient was admitted with ANGELINE and suspected metastatic prostate cancer, cardiology is now consulted for PVCs. Patient himself evaluated at [facility] urgent care on 04/16/2025 for symptoms of fatigue, chills, decreased urination and weight loss.
Immediate workup was deferred to outpatient given concern for possible malignancy. Patient was seen by the [facility] primary care resident in their office on 04/18/2025 and was HTN at 220/98 and ECG showed frequent PVCs. Patient presented to the ER for
evaluation and was admitted after CT scan showed suspected malignant masses in the prostate extending into the bladder, rectum and metastatic disease into the sacrum. Repeat ECG showed PVCs and bigeminy. Telemetry has showed sinus bradycardia and
at other times PVCs with bigeminy. Patient denies any palpitations, chest pain or SOB. Patient chops his own firewood and has been chopping firewood and stacking it on his own without any chest pain or SOB, although he is more fatigued. He can go
up and down the stairs in his home without any symptoms. No previous cardiac testing. He used to work as a grade school teacher.
-ECG reviewed by me is SR with PVCs and bigeminy. Telemetry reviewed by me is sinus bradycardia without ectopy.
-Long talk with patient and his sitting at the bedside. They are aware of suspected prostate cancer with metastatic disease into the bladder rectum and sacrum. They are also aware of the
-Patient with ANGELINE on admission in the setting of B/L UVJ obstruction with hydroureteronephrosis due to malignant extrinsic compression from suspected prostate cancer. Plan is for B/L percutaneous nephrostomy tubes to be placed in [facility] 04/19/2025.
-Cre was 6.1 on admission and is improved to 4.6 on 04/19/2025 with Rodriguez catheter placement and IVF's overnight
-Continues with hyperkalemia potassium is stable at 5.5. Follow-up BMP once percutaneous nephrostomy tubes replaced. If no improvement would consider nephrology consultation for additional management.
-Oncology has been consulted. Urology is following along as well and their note was reviewed by me on 04/19/2025
-With regards to PVCs, patient is currently sinus bradycardia without ectopy on telemetry. Ventricular bigeminy observed earlier. No evidence of sustained ventricular arrhythmia. No evidence of heart block.
-Check echo, pending EF could consider addition of Toprol-XL 12.5 mg daily to help suppress ectopy, but would need to follow on telemetry given sinus bradycardia at present.
-Unclear if patient will need any surgical intervention as part of his oncologic treatment. Patient reports that he can climb a flight of stairs without chest pain or SOB. He can stack firewood without chest pain or SOB. No resting chest pain or
SOB.
[2025-04-19] MEDS: NORVASC 5 MG PO (09:49)
--- NOTE | 2025-04-19 09:59 | CON.ONC ---
Documented by User: Carolyn Rudolph MD, Resident 04/19/25 14:59
Consultation
-
Date Consultation Requested: 04/18/25
Date Consultation Performed: 04/19/25
Requesting Provider: Pedro Wade MD
Performing Provider: Gilles Buckner MD; Klaudia, Carolyn Plunkett MD
Reason for Consultation: Multiple masses on CT concerning for metastases
Impression
Impression
Multiple abdominal/pelvic masses with lymphadenopathy identified on CT, primary origin remains undetermined
Urinary retention secondary to bilateral ureteral obstruction
ANGELINE
Hyperkalemia
Premature atrial complexes; bigeminy
Hypertension
Plan
Plan
-Given that the primary origin of the multiple masses found on CT remains unclear, will suggest an Interventional Radiology consult to determine best target area for biopsy of
either retroperitoneal node vs Sacral metastases---will await results.
--PSA 384, along with CT finding, concerning for prostatic cancer, but other origin cannot be ruled out at this time.
-Recommend a MRI lumbar/sacral spine for further assessment of the lytic osseous sacral lesions.
-Recommend neurosurgery consult to assess sacral lesion with spinal canal involvement
Patient History
History of Present Illness
Mr. Stovall is a 69-year-old male with a past medical history of hypertension (not on medications) who presents with lower abdominal pain and difficulty voiding.
Months prior to admission, he began experiencing lower abdominal pain described as a pressure-like sensation, which is relieved by voiding. Over the past few years, he has had progressive urinary tract symptoms, including frequency, urgency, and
decreased urinary output. He also notes nighttime urinary incontinence, which has led him to restrict food and fluid intake for fear that the increased abdominal pressure will worsen his incontinence; his sleep has since then been disrupted. He
reports an unintentional weight loss of approximately 25 pounds over the past few years.
His symptoms have worsened overtime, reporting a remote episode of rectal bleeding and hematuria in 2019 due to excessive straining. On day of admission, he reports that his abdominal pain became constant, and intractable, thus sought consult. He
denies dysuria, flank pain, back pain, weakness, or palpitations.
At time of consult, the patient reports that his abdominal pain has resolved with urinary catheterization.
CT (04/18/2025) showed:
1. 14.6 cm left renal mass
2. 1.9 cm mass in the right kidney
3. Metastatic retroperitoneal lymphadenopathy.
4. MODERATE ACUTE RIGHT HYDROURETERONEPHROSIS and MODERATE ACUTE LEFT HYDROURETER secondary to bilateral ureteral obstructions at the level of the urinary bladder.
5. Severe diffuse thickening of the urinary bladder wall suggesting malignancy (URINARY BLADDER UROTHELIAL CARCINOMA). Rodriguez catheter in the urinary bladder.
6. 2.9 cm mass protruding posteriorly from the prostate gland suggesting PROSTATE CANCER.
7. Small bilateral adrenal adenomas.
8. Severe diverticulosis in the sigmoid colon.
9. Varicoid bronchiectasis in the left lower lobe with a 2.5 cm pulmonary nodule which is likely peripheral endobronchial impaction (less likely pulmonary metastatic disease).
10. 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
Past-Medical/Surgical History
Hypertension
Patient Medication
�Medication �Instructions �Recorded �Confirmed �Last Taken �Type
Vital Prostate Support 2 tab PO DAILY Supplement 04/18/25 04/18/25 04/17/25 History
Active Medications
Generic Name Dose Route Start Last Admin
Trade Name Freq PRN Reason Stop Dose Admin
Amlodipine Besylate 5 mg 04/19/25 10:00 04/19/25 09:49
Amlodipine 5 Mg Tablet PO 05/17/25 09:59 5 mg
DAILY LIZET Administration
Hydralazine HCl 10 mg 04/19/25 09:07
Hydralazine 20 Mg/Ml Vial IV 05/17/25 09:06
Q6HPRN PRN
hypertensive urgency/emergency
Sodium Chloride 1,000 mls @ 100 mls/hr 04/18/25 19:48 04/19/25 05:48
Nss IV 1,000 mls
.Q10H LIZET Administration
Sodium Chloride 0 flush 04/18/25 20:00
Sodium Chloride 0.9% (Flush) Syringe IV 05/16/25 19:59
PER PROTOCOL LIZET
Review of Systems
-
History Source: Patient
Constitutional: Reports Weight Loss; Denies Fever, No Appetite or Weakness
EENT: Reports No Symptoms
Respiratory: Reports No Symptoms
Cardiac: Reports No Symptoms
GI: Denies Abdominal Pain, Nausea, Vomiting, Diarrhea or Constipated
: Reports Frequency, Difficulty Voiding and Urgency; Denies Dysuria or Flank Pain
Musculoskeletal: Denies Edema
Skin: Reports No Symptoms
Neuro: Reports No Symptoms
Hematologic/Lymphatic: Denies Bleeding
Physical Exam
-
General: Well Developed and No Apparent Distress; Negative Pain
Cardiology: Normal Sinus Rhythm (with bigeminy), S1 and S2
Pulmonary: Clear
GI: Soft and Other (firmness in left lower abdomen, non distended, nontender)
Genito-Urinary: No Costovertebral Tenderness and Bloody Urine
Musculoskeletal: No Edema
Extremities: Pulses Present
Skin: Warm
Psych: Calm
Labs
Lab Results
WBC 13.1 10^3/uL (4.8-10.8) H 04/19/25 05:08
RBC 4.38 10^6/uL (4.70-6.10) L 04/19/25 05:08
Hgb 12.8 g/dL (13.0-18.0) L 04/19/25 05:08
Hct 39.8 % (39.0-52.0) 04/19/25 05:08
MCV 90.9 fL (80.0-94.0) 04/19/25 05:08
MCH 29.2 pg (27.0-31.0) 04/19/25 05:08
MCHC 32.2 g/dL (33.0-37.0) L 04/19/25 05:08
RDW 11.9 % (11.5-14.5) 04/19/25 05:08
Plt Count 436 10^3/uL (130-400) H 04/19/25 05:08
MPV 9.9 fL (7.4-10.4) 04/19/25 05:08
Abs Immat Gran (auto) 0.1 10^3/uL (0-0.05) H 04/19/25 05:08
Absolute Neuts (auto) 10.6 10^3/uL (1.4-6.5) H 04/19/25 05:08
Absolute Lymphs (auto) 1.2 10^3/uL (1.2-3.4) 04/19/25 05:08
Absolute Monos (auto) 1.2 10^3/uL (0.1-0.6) H 04/19/25 05:08
Absolute Eos (auto) 0.1 10^3/uL (0-0.7) 04/19/25 05:08
Absolute Basos (auto) 0.0 10^3/uL (0-0.2) 04/19/25 05:08
Immature Gran % 0.8 % (0-0.5) H 04/19/25 05:08
Neutrophils % 80.5 % (42.2-75.2) H 04/19/25 05:08
Lymphocytes % 9.1 % (20.5-51.1) L 04/19/25 05:08
Monocytes % 9.0 % (1.7-9.3) 04/19/25 05:08
Eosinophils % 0.4 % (0-6) 04/19/25 05:08
Basophils % 0.2 % (0-2) 04/19/25 05:08
Creatinine 4.6 mg/dL (0.7-1.3) H* 04/19/25 05:08
Vital Signs
Vital Signs
Temp Pulse Resp BP Pulse Ox
98.4 F 56 17 168/93 97
04/19/25 07:22 04/19/25 07:22 04/19/25 07:22 04/19/25 07:22 04/19/25 07:22

Documented by User: Gilles Buckner MD 04/19/25 15:30
Plan
Plan
-Given that the primary origin of the multiple masses found on CT remains unclear, will suggest an Interventional Radiology consult to determine best target area for biopsy of
either retroperitoneal node vs Sacral metastases---will await results.
--PSA 384, along with CT finding, concerning for prostatic cancer, but other origin cannot be ruled out at this time.
-Recommend a MRI lumbar/sacral spine for further assessment of the lytic osseous sacral lesions.
-Recommend neurosurgery consult to assess sacral lesion with spinal canal involvement
Oncology Addendum:
Patient seen and evaluated and agree w/ resident note and plan as oultined
-abnormal CT imaging - w/ bilateral renal masses - left 14.6cm and right 1.9cm, w/ metastatic retroperitoneal adenopathy, moderate left hydronephrosis /hydroureter, urinary bladder wall thickening concerning for possible bladder malignancy, 2.9cm
mass protruding from the prostate gland, bilateral adrenal adenomas, and 5.1cm lytic lesion in the sacrum extending in the spinal canal
-CT imaging is concerning for multiple malignant processes - possible bilateral renal cell carcinoma, prostate cancer, as well as bladder changes concerning for bladder malignancy
-PSA was elevated at 384
-tissue diagnosis would be needed prior to additional medical oncology discussions regarding potential treatment options
-urology is following - would benefit from cystoscopy to evaluate bladder wall thickening - prostate biopsy?
-IR consult for biopsy of either retroperitoneal adenopathy vs. sacral lytic lesion
-recommend MRI lumbar/ sacral spine - r/o sacral cord involvement
-neurosurgery consultation - given CT findings - sacral spinal canal involvement
-recommendations were discussed w/ hospitalist - Dr. Thompson
Will continue to follow with you and await pathology
--- NOTE | 2025-04-19 14:47 | CM ---
Patient seen at bedside with physician on . Patient states that he lives in a 2 story home with and has no DME at home. [facility] and he sees Dr. Hathaway. Patient states that he does not like to see doctors
and does not typically go to see Doctors. Patient uses the [facility] on [address] Patient for further testing and work up per physician. CM will continue to follow for discharge planning needs.
Plan; home with VN pending medical treatment plan
[2025-04-19] MEDS: APRESOLINE 10 MG IV (15:00)
[2025-04-20] VITALS (10 sets, daily range): BP systolic 103–170; BP diastolic 76–111; BMI 24.4
[2025-04-20] MEDS: APRESOLINE 10 MG IV ×2 (00:17→06:23)
[2025-04-20] MEDS: NSS 1000 IV (05:02)
[2025-04-20] MEDS: NORVASC 5 MG PO ×2 (07:28→11:59)
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
[2025-04-20 08:42] LABS: Blood Urea Nitrogen 51 mg/dl (9-20); Calcium 9.2 mg/dl (8.4-10.2); Carbon Dioxide 21 mmol/L (22-30); Chloride 113 mmol/L (98-107); Estimated Creatinine Clearance 26 ml/min; Glucose 118 mg/dl (70-99); Potassium 4.8 mmol/L (3.5-5.1); Sodium 143 mmol/L (135-145); eGFR 21.80
--- NOTE | 2025-04-20 09:25 | W.PN.UPDATE ---
Update Note
Progress Note Update
Left renal mass biopsy performed, patient tolerated procedure well.
US was performed of the right kidney, which showed improved hydronephrosis compared to prior CT. Creatinine 3.0 today, continuing to improve. Given improvement, PCN was not placed.
Left PCN is not possible due to anatomic distortion of the kidney from the mass. No left hydronephrosis was seen on today's US.
--- NOTE | 2025-04-20 10:27 | PN.CDI ---
CDI
- -
CDI:
Physician Documentation Request
Admit Date: 04/18/25 17:59
Dear Doctor Shante,
Clinical Indicators:
Patient admitted with concern for malignancy.
04/19 note/assessment: -'Reported 20lb, 11% significant weight loss x 3 months prior to admission.'
-'Pt meets criteria for severe protein calorie malnutrition of chronic illness with
>7.5% weight loss x 3 months, appetite priot to hospital admit <75% for
>1 month.'
Based on the above information and your assessment, which of the following most accurately represents the patient's nutritional status?
Severe Protein Calorie Malnutrition
Other (please specify)
[place] Criteria ([facility] Hospitalist 2017)
2 or more criteria must be present for either
non severe or severe malnutrition
Note that the criteria differs related to the
presence of an acute or chronic illness
Chronic Illness
Energy Intake Non Severe: <75% for >1 month
Severe: <75% for >1 month
Weight Loss Non Severe: 5% over 1 month
7.5% over 3 months
10% over 6 months
20% over 1 year
Severe: >5% over 1 month
>7.5% over 3 months
>10% over 6 months
>20% over 1 year
Body Fat Non Severe: Mild Loss
Severe: Severe Loss
Muscle Mass Non Severe: Mild Loss
Severe: Severe Loss
Fluid Accumulation Non Severe: Mild Accumulation
Severe: Moderate to severe
accumulation
Reduced Top Edge Beveler Strength Non Severe: N/A
Severe: Measurably reduced
Additional criteria that can be used to Determine if Mild or Moderate Malnutrition ([employer] Manual 2018)
Mild Moderate Severe
Albumin gm/dl <3.0 gm/dl <2.5 gm/dl <2.0 gm/dl
Pre Albumin mg/dl <15 gm/dl <10 mg/dl <5.0 mg/dl
BMI <18.5 <17 <16
Use of terms such as suspected, likely, concern for, or probable (associated with a specific diagnosis that is being evaluated, monitored, or treated as if it exists) are acceptable and can be coded in the inpatient setting, when documented at the
time of discharge.
Thank you,
LISSETTE Cleaning RN
CDI Specialist
available via tiger text
Please use your independent medical judgment in providing your response.
--- NOTE | 2025-04-20 10:56 | W.PN.URO.CBU ---
Addendum entered and electronically signed by Francis Oscar MD 04/20/25 13:43:
Bilateral PCN plan temporarily held - large left renal mass poses technical challenge, and US per IR showed improvement in right hydroureteronephrosis.
Given gradual recovery of renal function, will observe Cr w/ Rodriguez catheter in place.
Original Note:
Today's Communication / Plan
-
Trend Cr
Consider voiding trial after Cr jaswant prior to discharge
F/U renal mass bx results
F/U w/ Medical Oncology for treatment discussion of suspected metastatic prostate + kidney cancers
F/U w/ Dr. Oscar in 2 weeks for outpatient cystoscopy
D/w IR.
D/w Hospitalist.
Assessment / Plan
-
ARF - improving
Bilateral UVJ obstruction w/ hydroureteronephrosis - right hydronephrosis improved on IR imaging today
Acute urinary retention - s/p Rodriguez catheter decompression
Hematuria - improving
Suspected metastatic left RCC - RP LAD
Small right renal mass
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
Cr downtrending w/ catheter decompression
JOE (04/19) => hard, nodular prostate gland w/ extension into rectum c/w prostate tumor
PSA 384 (04/19)
Diagnosis
-
Date of Service: April 20, 2025
-
Patient Diagnosis:
Bilateral UVJ obstruction w/ hydroureteronephrosis - unclear if extrinsic compression or urinary retention
Acute urinary retention
Hematuria
Suspected metastatic left RCC - RP LAD
Small right renal mass
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
Subjective
-
Feeling better in last 48 hrs.
Underwent left renal mass biopsy by IR.
Objective
-
Vital Signs
Temp Pulse Resp BP Pulse Ox
98.3 F 103 20 161/101 97
04/20/25 07:45 04/20/25 09:45 04/20/25 09:45 04/20/25 09:45 04/20/25 09:45
Intake and Output
04/19/25 04/20/25 04/21/25
06:59 06:59 06:59
Intake Total 1480 / 1480 2360 / 2360
Output Total 4980 / 4980 5100 / 5100
Balance -3500 / -3500 -2740 / -2740
Intake:
Oral fluids 480 / 480 1160 / 1160
IV fluids (Total) 1000 / 1000 1200 / 1200
Output:
Urine, Rodriguez 4980 / 4980 5100 / 5100
Laboratory Results
04/20/25 08:17
Physical Exam
-
General - well developed, well nourished, no acute distress
Abdomen - soft, non-tender, non-distended
- Rodriguez catheter in place
Neuro - AOx3, no motor deficits
Extremities - no clubbing, no cyanosis, no edema
Care Review
Data Reviewed
Discussed with: Hospitalist and IRAD
CT Scan: Report Pers Reviewed and Image Pers Reviewed
Ultrasound: Report Pers Reviewed and Image Pers Reviewed
Total Time Spent with Patient (in minutes): 20
[2025-04-20 11:03] LABS: Hematocrit 44.6 % (39.0-52.0); Hemoglobin 14.9 g/dL (13.0-18.0); Mean Corp Hgb Conc. 33.4 g/dL (33.0-37.0); Mean Corpuscular Volume 90.3 fL (80.0-94.0); Nucleated Red Blood Cells % 0 % (-); Platelet Count 511 10^3/uL (130-400); Red Cell Dist. Width 12.2 % (11.5-14.5)
--- NOTE | 2025-04-20 12:58 | W.PN.ONC ---
Today's Communication / Plan
-
discussed CT findings again in detail w/ patient
await pathology from kidney biopsy
creatinine improved
MRI sacral spine pending to further assess lytic lesion
Impression
Impression
abnormal CT imaging - w/ bilateral renal masses - left 14.6cm and right 1.9cm, w/ metastatic retroperitoneal adenopathy, moderate left hydronephrosis /hydroureter, urinary bladder wall thickening concerning for possible bladder malignancy, 2.9cm
mass protruding from the prostate gland, bilateral adrenal adenomas, and 5.1cm lytic lesion in the sacrum extending in the spinal canal
Urinary retention secondary to bilateral ureteral obstruction
ANGELINE
Hyperkalemia
Premature atrial complexes; bigeminy
Hypertension
Plan
Plan
1. Abnormal CT imaging is concerning for multiple malignant processes - possible bilateral renal cell carcinoma, prostate cancer - elevated PSA and prostate lesion, as well as bladder changes concerning for bladder malignancy
-PSA was elevated at 384
-tissue diagnosis would be needed prior to additional medical oncology discussions regarding potential treatment options
-urology is following - would benefit from cystoscopy to evaluate bladder wall thickening
-s/p IR biopsy kidney mass - pathology pending
-etiology of potential metastatic findings - retroperitoneal adenopathy & sacral lytic lesion - pathologic assessment of these areas may be of benefit
-recommend MRI lumbar/ sacral spine - r/o sacral cord involvement
-neurosurgery consultation - given CT findings - ? sacral spinal canal involvement
Will continue to follow with you and await pathology
Subjective/Objective
Subjective/Objective
feels better, no SOB or chest pain, no abdominal pain, no fevers or chills, no neuromuscular weakness, no changes in bowel habits
Vital Signs:
Vital Signs
Temp Pulse Resp BP Pulse Ox
97.9 F 104 18 158/111 96
04/20/25 11:12 04/20/25 11:12 04/20/25 11:12 04/20/25 11:12 04/20/25 11:12
Lab Results:
Laboratory Data
WBC 9.9 10^3/uL (4.8-10.8) 04/20/25 10:30
Hgb 14.9 g/dL (13.0-18.0) 04/20/25 10:30
Plt Count 511 10^3/uL (130-400) H 04/20/25 10:30
PT 14.8 Sec (11.4-14.6) H 04/19/25 08:19
INR 1.13 04/19/25 08:19
eGFR 21.80 04/20/25 08:17
Exam: unchanged
--- NOTE | 2025-04-20 13:07 | W.PN.CARDCBS ---
Today's Communication / Plan
-
Ventricular ectopy appears to have improved
Echo with normal LV function
No further treatment needed
Will sign off
Impression / Plan
-
PCP: None, saw [facility] primary care residency program on day of admission for new patient visit
Cardiology: None prior to admission
Impression:
Admitted with ANGELINE, weight loss and concern for malignancy 04/18/2025
ANGELINE
Urinary obstruction with B/L UVJ obstruction and hydroureteronephrosis due to malignant extrinsic compression from prostate CA status post percutaneous nephrostomy tube 04/20/2025
Suspected prostate CA with metastasis into the bladder, rectum and sacrum
Hyperkalemia
PVCs and bigeminy
HTN
Echo 04/19/2025: Normal LV function
Plan:
PVCs seem to have improved
Not likely of clinical significance given normal ejection fraction
Remains hypertensive and have increase Norvasc to 10 mg daily
No further cardiac issues
Will sign off, call with questions
PREADMIT DATA
-Patient was admitted with ANGELINE and suspected metastatic prostate cancer, cardiology is now consulted for PVCs. Patient himself evaluated at [facility] urgent care on 04/16/2025 for symptoms of fatigue, chills, decreased urination and weight loss.
Immediate workup was deferred to outpatient given concern for possible malignancy. Patient was seen by the [facility] primary care resident in their office on 04/18/2025 and was HTN at 220/98 and ECG showed frequent PVCs. Patient presented to the ER for
evaluation and was admitted after CT scan showed suspected malignant masses in the prostate extending into the bladder, rectum and metastatic disease into the sacrum. Repeat ECG showed PVCs and bigeminy. Telemetry has showed sinus bradycardia and
at other times PVCs with bigeminy. Patient denies any palpitations, chest pain or SOB. Patient chops his own firewood and has been chopping firewood and stacking it on his own without any chest pain or SOB, although he is more fatigued. He can go
up and down the stairs in his home without any symptoms. No previous cardiac testing. He used to work as a graphic design teacher.
Progress Note - Clinical Data Coordinator
Subjective
Date of Service: April 20, 2025
No complaints
Objective
Labs:
04/20/25 10:30
04/20/25 08:17
Labs
Hgb 14.9 g/dL (13.0-18.0) 04/20/25 10:30
Hct 44.6 % (39.0-52.0) 04/20/25 10:30
Plt Count 511 10^3/uL (130-400) H 04/20/25 10:30
PT 14.8 Sec (11.4-14.6) H 04/19/25 08:19
INR 1.13 04/19/25 08:19
Sodium 143 mmol/L (135-145) 04/20/25 08:17
Potassium 4.8 mmol/L (3.5-5.1) 04/20/25 08:17
BUN 51 mg/dl (9-20) H 04/20/25 08:17
Creatinine 3.0 mg/dL (0.7-1.3) H 04/20/25 08:17
Glucose 118 mg/dl (70-99) H 04/20/25 08:17
Troponins
04/18/25
15:07
Troponin I 0.022
Vital Signs and I&O:
Vital Signs
Temp Pulse Resp BP Pulse Ox
97.9 F 104 18 158/111 96
04/20/25 11:12 04/20/25 11:12 04/20/25 11:12 04/20/25 11:12 04/20/25 11:12
Vital Signs
Temp Pulse Resp BP Pulse Ox
97.9 F 104 18 158/111 96
04/20/25 11:12 04/20/25 11:12 04/20/25 11:12 04/20/25 11:12 04/20/25 11:12
Intake & Output
04/18/25 04/19/25 04/20/25 04/21/25
06:59 06:59 06:59 06:59
Intake Total 1480 / 1480 2360 / 2360
Output Total 4980 / 4980 5100 / 5100
Balance -3500 / -3500 -2740 / -2740
Physical Exam
Physical Exam
General: Well developed, well nourished in NAD.
Neck: Supple, no JVD, HJR, carotids +2 B/L, no bruits bilaterally.
Heart: Non displaced PMI, RRR, no murmurs, No S3, S4, no rubs.
Lungs: Scattered rhonchi
Extremities: No clubbing, cyanosis or edema bilaterally.
Neuro: Grossly nonfocal, awake, alert and oriented x3.
[2025-04-20] MEDS: HEPARIN 5000 UNITS SC ×2 (13:28→21:57)
[2025-04-20] MEDS: TOPROL XL 12.5 MG PO (18:08)
[2025-04-21 03:00] VITALS: BP 177/85
[2025-04-21] MEDS: APRESOLINE 10 MG IV ×2 (04:25→22:02)
[2025-04-21 06:00] VITALS: BMI 24.2
[2025-04-21 07:56] LABS: Glucose - Point of Care 112 mg/dl (70-99)
[2025-04-21 08:07] VITALS: BP 158/96
[2025-04-21 08:56] LABS: Hematocrit 41.7 % (39.0-52.0); Hemoglobin 14.1 g/dL (13.0-18.0); Mean Corp Hgb Conc. 33.8 g/dL (33.0-37.0); Mean Corpuscular Volume 88.3 fL (80.0-94.0); Nucleated Red Blood Cells % 0 % (-); Platelet Count 557 10^3/uL (130-400); Red Cell Dist. Width 12.0 % (11.5-14.5)
[2025-04-21 09:21] LABS: ALT (SGPT) 28 U/L (0-50); AST (SGOT) 41 U/L (17-59); Albumin 3.7 g/dl (3.5-5.0); Alkaline Phosphatase 99 U/L (38-126); Blood Urea Nitrogen 41 mg/dl (9-20); Calcium 9.4 mg/dl (8.4-10.2); Carbon Dioxide 22 mmol/L (22-30); Chloride 106 mmol/L (98-107); Estimated Creatinine Clearance 29 ml/min; Glucose 114 mg/dl (70-99); Potassium 4.9 mmol/L (3.5-5.1); Sodium 139 mmol/L (135-145); Total Protein 6.4 g/dl (6.3-8.2); eGFR 25.88
[2025-04-21] MEDS: HEPARIN 5000 UNITS SC ×2 (09:31→22:02)
[2025-04-21] MEDS: TOPROL XL 12.5 MG PO (09:31)
--- NOTE | 2025-04-21 10:11 | W.PN.URO.CBU ---
Today's Communication / Plan
-
no new input
Assessment / Plan
-
ARF - improving
Bilateral UVJ obstruction w/ hydroureteronephrosis - right hydronephrosis improved on IR imaging today
Acute urinary retention - s/p Rodriguez catheter decompression
Hematuria - improving
Suspected metastatic left RCC - RP LAD
Small right renal mass
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
Cr downtrending w/ catheter decompression
JOE (04/19) => hard, nodular prostate gland w/ extension into rectum c/w prostate tumor
PSA 384 (04/19)
Diagnosis
-
Date of Service: April 21, 2025
-
Patient Diagnosis:
Bilateral UVJ obstruction w/ hydroureteronephrosis - unclear if extrinsic compression or urinary retention
Acute urinary retention
Hematuria
Suspected metastatic left RCC - RP LAD
Small right renal mass
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
Objective
-
Vital Signs
Temp Pulse Resp BP Pulse Ox
98.0 F 53 16 158/96 94
04/21/25 08:07 04/21/25 08:07 04/21/25 08:07 04/21/25 08:07 04/21/25 08:07
Intake and Output
04/20/25 04/21/25 04/22/25
06:59 06:59 06:59
Intake Total 2360 / 2360 480 / 480
Output Total 5100 / 5100 2750 / 2750
Balance -2740 / -2740 -2270 / -2270
Intake:
Oral fluids 1160 / 1160 480 / 480
IV fluids (Total) 1200 / 1200
Output:
Urine, Rodriguez 5100 / 5100 2750 / 2750
Laboratory Results
04/21/25 08:01
04/21/25 08:01
Physical Exam
-
General - well developed, well nourished, no acute distress
Chest - clear bilaterally
Abdomen - soft, non-tender, positive bowel sounds, no CVAT, no incisional pain or distention
Genitalia - normal
Rectal - normal
Skin - warm & dry with no rash
Neuro - AOx3, no motor deficits
Extremities - no clubbing, no cyanosis, no edema
Incision - clean, dry
Dressing - clean, dry, intact
[2025-04-21 12:10] VITALS: BP 173/66
[2025-04-21 16:07] VITALS: BP 150/98
--- NOTE | 2025-04-21 17:37 | W.PN.HOSP.TC ---
Addendum entered and electronically signed by Neva Thompson MD 04/21/25 19:12:
I saw and evaluated the patient independently. I reviewed and discussed the resident�s note and agree with findings and plan as documented by Dr. Merchant.
GENERAL: well developed, well nourished, male in no apparent distress
HEENT:NC/AT
HEART: regular rate and rhythm, +S1, +S2
LUNGS : clear to auscultation bilaterally
ABDOM: soft, nontender, distended, + bowel sounds
EXT: no cyanosis, clubbing, or edema
NEUROLOGIC: grossly intact
: finney cath with clear urine
Bilateral/kidney/prostate masses with lytic osseous lesions, and bladder thickening--highly suspicious for malignancy--rare to have 3 separate primary cancers (presuming renal cell, prostate, urothelial) vs primary prostate with mets to
bladder/sacrum and renal cell ca?--apprec urology and oncology-- s/p left kidney biopsy--PSA 384--s/p staging CTs--chest CT with tiny nodules--will likely need PET scan as outpt-- MRI L/S spine does not show extension into the spinal canal (as does
CT scan) --did speak with neurosurgery--nothing surgical to do--ONC or RAD ONC
Acute kidney injury-- postobstructive most likely with bilateral hydronephrosis--cont finney, stop IVF--creat on admission was 6.1, then 4.6, 3.0, 2.6--s/p right PCN--cont to follow creat--cont tamsulosin
Hyperkalemia--likely from ANGELINE due to obstruction--no need for HD--stop IVF--improved
Hypertensive urgency--BPs high-- likely due to renal issues--cont amlodipine and PRN hydralazine---apprec cards--ECHO WNL--started Toprol XL 12.5 mg--much improved
Bigeminy possibly secondary to hyperkalemia--resolved without intervention
Hematuria/Isolated rectal bleeding few months ago�could have been hematuria--Likely due to renal masses, prostate mass, and possible bladder cancer- trend CBC
Hx constipation- Had bowel movement today and every day this week
severe protein calorie malnutrition--apprec dietary
Hx Periodontal disease
code status--Full code
DVT prophylaxis�heparin discontinued
Original Note:
Today's Communication/Plan
-
- Follow-up with oncology's recommendations, trend labs
Assessment / Plan
Assessment / Plan
Bilateral kidney masses, prostate mass with lytic osseous lesions, and bladder thickening due to malignancy:
-Patient presented to the ER with general malaise for 2 to 3 months, severe hypertension and malaise, difficulty urinating, weight loss
-CT scan showed very large 14.6 cm left renal cell carcinoma, possible renal cell carcinoma in the right kidney, metastatic retroperitoneal lymphadenopathy, right and left hydronephrosis, possible urinary bladder urothelial carcinoma,
diverticulosis, 5.1 cm lytic osseous metastatic cyst in the sacrum
-MRI shows avidly enhancing mass most likely metastasis in the posterior aspect of S1 and S2 vertebral bodies with moderate canal narrowing, multiple large retroperitoneal lymph nodes which likely represent malignancy
- Patient had left kidney biopsy done with interventional radiology and we are awaiting pathology to further guide treatment
-PSA is 384
-Neurosurgery consulted and they will not see patient as he is asymptomatic
-Urology, oncology consulted
-Urology suggest follow-up with Dr. Oscar in 2 weeks for outpatient cystoscopy
- Oncology would like to wait the pathology of the renal biopsy to further guide treatment and will continue to follow
- PT/OT ordered
Postobstructive kidney injury:
- Urinalysis unremarkable. Urine cx NG
- Creatinine decreased from 6 on admission to 2.6 today
- Tamsulosin started
- Finney catheter placed
� Bilateral percutaneous nephrostomy tube placement not pursued due to renal function improvement with Finney and level obstruction most likely a bladder. Left renal anatomy distorted by tumor, making left kidney not a candidate for PCN tube.
Hypertensive urgency:
-Today patient's blood pressure is 150/98 and well-controlled
-Cardiology was consulted, appreciate input input
- Likely from renal masses.
-Cardiology discontinued patient's 10 mg of Norvasc
- Patient currently on metoprolol succinate 12.5 mg p.o. daily for blood pressure control
�Hydralazine 10 mg IV q6 PRN for BP >160/100.
Bigeminy possibly secondary to hyperkalemia
-Ventricular ectopy has improved, no PVCs on telemetry, resolved
- Patient has echo with normal left ventricular function of 52%
- Cardiology has no further inputs regarding this diagnosis
Hyperkalemia�resolved
Potassium 5.5. Normalized to 4.8 after Finney placement
� Likely due to ANGELINE from bilateral hydroureter ureteral nephrosis (level obstruction of bladder)
- Planned to give Lokelma but held due to n.p.o. for IR
� Considering IV calcium gluconate, IV insulin with glucose, albuterol inhaler, patiromer if hyperkalemia does not resolve
� Telemetry
Severe protein calorie nutrition
Patient reported 20lb weight loss, which is 11% weight loss. meets criteria for severe protein calorie malnutrition of chronic illness with >7.5% weight loss x 3 months, appetite prior to hospital admit <75% for >1 month
� Nutrition consult
Hematuria
Isolated rectal bleeding few months ago�could have been hematuria:
Likely due to renal masses, prostate mass, and possible bladder cancer
Hemoglobin stable; not anemic
- Trend CBC
Hx constipation
- Had bowel movement today and every day this week
Hx Periodontal disease
Full code
DVT prophylaxis�heparin 5000u q12h SC
2g sodium diet
Anticipated Discharge: 24 - 48 hours
Subjective/Interval History
-
Date of Service: April 21, 2025
No overnight events
No acute medical complaints
Objective Data
-
Labs:
Laboratory Results
04/21/25
08:01
WBC 11.4 H
Hgb 14.1
Hct 41.7
Plt Count 557 H
Sodium 139
Potassium 4.9
Chloride 106
Carbon Dioxide 22
BUN 41 H
Creatinine 2.6 H
Glucose 114 H
Calcium 9.4
Total Bilirubin 0.4
AST 41
ALT 28
Alkaline Phosphatase 99
Vital Signs:
Vital Signs
Temp Pulse Resp BP Pulse Ox
98.2 F 82 16 150/98 97
04/21/25 16:07 04/21/25 16:07 04/21/25 16:07 04/21/25 16:07 04/21/25 16:07
I&O
04/20/25 04/21/25 04/22/25
06:59 06:59 06:59
Intake Total 2360 / 2360 480 / 480
Output Total 5100 / 5100 2750 / 2750
Balance -2740 / -2740 -2270 / -2270
Review of Systems
-
History Source: Patient
All other systems: Reviewed and negative
Physical Exam
-
General: Well Developed, Well Nourished, No Apparent Distress, Comfortable and Conversant
HEENT: Normocephalic, Atraumatic, Anicteric, Nose Appears Normal and Ears Appear Normal
Respiratory: Clear to Auscultation
Cardiac: Regular Rhythm and S1/S2
GI: Soft, Nontender, Nondistended and Normal Bowel Sounds
Genito-urinary: Finney (Clear urine)
Musculoskeletal: No Clubbing, No Cyanosis and No Edema
Skin: Warm and Dry
Neuro: Awake and Alert
Psych: Calm
Data Reviewed
-
Diagnostic Radiology: Report Reviewed by me and Discussed with Physician
CT Scan: Report Reviewed by me and Discussed with Physician
MRI: Report Reviewed by me and Discussed with Physician
Labs: Discussed with Physician and Discussed with Nurse
[2025-04-21 23:00] VITALS: BP 169/70
[2025-04-22 06:00] VITALS: BMI 24.2
[2025-04-22 07:30] VITALS: BP 164/76
[2025-04-22] MEDS: HEPARIN 5000 UNITS SC (08:10)
[2025-04-22] MEDS: TOPROL XL 12.5 MG PO (08:10)
[2025-04-22 10:16] LABS: Platelet Count 608 10^3/uL (130-400)
[2025-04-22 10:18] LABS: Hematocrit 43.5 % (39.0-52.0); Hemoglobin 14.1 g/dL (13.0-18.0); Mean Corp Hgb Conc. 32.4 g/dL (33.0-37.0); Mean Corpuscular Volume 90.6 fL (80.0-94.0); Nucleated Red Blood Cells % 0 % (-); Red Cell Dist. Width 11.9 % (11.5-14.5)
[2025-04-22 10:41] LABS: ALT (SGPT) 33 U/L (0-50); AST (SGOT) 33 U/L (17-59); Albumin 3.7 g/dl (3.5-5.0); Alkaline Phosphatase 95 U/L (38-126); Blood Urea Nitrogen 39 mg/dl (9-20); Calcium 9.2 mg/dl (8.4-10.2); Carbon Dioxide 20 mmol/L (22-30); Chloride 104 mmol/L (98-107); Estimated Creatinine Clearance 31 ml/min; Glucose 252 mg/dl (70-99); Potassium 4.7 mmol/L (3.5-5.1); Sodium 132 mmol/L (135-145); Total Protein 6.5 g/dl (6.3-8.2); eGFR 27.13
--- NOTE | 2025-04-22 11:38 | W.PN.URO.CBU ---
Today's Communication / Plan
-
no new input
Assessment / Plan
-
ARF - improving
Bilateral UVJ obstruction w/ hydroureteronephrosis - right hydronephrosis improved on IR imaging today
Acute urinary retention - s/p Rodriguez catheter decompression
Hematuria - improving
Suspected metastatic left RCC - RP LAD
Small right renal mass
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
Cr downtrending w/ catheter decompression
JOE (04/19) => hard, nodular prostate gland w/ extension into rectum c/w prostate tumor
PSA 384 (04/19)
Diagnosis
-
Date of Service: April 22, 2025
-
Patient Diagnosis:
Bilateral UVJ obstruction w/ hydroureteronephrosis - unclear if extrinsic compression or urinary retention
Acute urinary retention
Hematuria
Suspected metastatic left RCC - RP LAD
Small right renal mass
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
Objective
-
Vital Signs
Temp Pulse Resp BP Pulse Ox
97.9 F 53 16 164/76 96
04/22/25 07:30 04/22/25 07:30 04/22/25 07:30 04/22/25 07:30 04/22/25 07:30
Intake and Output
04/21/25 04/22/25 04/23/25
06:59 06:59 06:59
Intake Total 480 / 480 1680 / 1680
Output Total 2750 / 2750 2850 / 2850
Balance -2270 / -2270 -1170 / -1170
Intake:
Oral fluids 480 / 480 1680 / 1680
Output:
Urine, Rodriguez 2750 / 2750 2850 / 2850
Laboratory Results
04/22/25 09:07
04/22/25 09:07
Physical Exam
-
General - well developed, well nourished, no acute distress
Chest - clear bilaterally
Abdomen - soft, non-tender, positive bowel sounds, no CVAT, no incisional pain or distention
Genitalia - normal
Rectal - normal
Skin - warm & dry with no rash
Neuro - AOx3, no motor deficits
Extremities - no clubbing, no cyanosis, no edema
Incision - clean, dry
Dressing - clean, dry, intact
[2025-04-22 13:06] VITALS: BP 159/95; PULSE 92; O2SAT 95
[2025-04-22 13:15] VITALS: BP 159/95; PULSE 92; O2SAT 95
--- NOTE | 2025-04-22 14:51 | W.PN.HOSP.TC ---
Addendum entered and electronically signed by Neva Thompson MD 04/22/25 18:23:
I saw and evaluated the patient independently. I reviewed and discussed the resident�s note and agree with findings and plan as documented by Dr. Merchant.
GENERAL: well developed, well nourished, male in no apparent distress
HEENT:NC/AT
HEART: regular rate and rhythm, +S1, +S2
LUNGS : clear to auscultation bilaterally
ABDOM: soft, nontender, distended, + bowel sounds
EXT: no cyanosis, clubbing, or edema
NEUROLOGIC: grossly intact
: finney cath with clear urine
Bilateral/kidney/prostate masses with lytic osseous lesions, and bladder thickening--highly suspicious for malignancy--rare to have 3 separate primary cancers (presuming renal cell, prostate, urothelial) vs primary prostate with mets to
bladder/sacrum and renal cell ca?--apprec urology and oncology-- s/p left kidney biopsy--PSA 384--s/p staging CTs--chest CT with tiny nodules--will likely need PET scan as outpt-- MRI L/S spine does not show extension into the spinal canal from mets
(as does CT scan) --did speak with neurosurgery--nothing surgical to do--ONC or RAD ONC as outpt
Acute kidney injury-- postobstructive most likely with bilateral hydronephrosis--cont finney, stop IVF--creat on admission was 6.1, then 4.6, 3.0, 2.6, 2.5--NO PCNs placed--cont to follow creat--cont tamsulosin--d/c with finney and urologic follow up
Hyperkalemia--likely from ANGELINE due to obstruction--no need for HD--stop IVF--improved
Hypertensive urgency--BPs high-- likely due to renal issues--cont amlodipine and PRN hydralazine---apprec cards--ECHO WNL--started Toprol XL 12.5 mg--much improved
Bigeminy possibly secondary to hyperkalemia--resolved without intervention
Hematuria/Isolated rectal bleeding few months ago�could have been hematuria--Likely due to renal masses, prostate mass, and possible bladder cancer- trend CBC
Hx constipation- Had bowel movement today and every day this week
severe protein calorie malnutrition--apprec dietary
Hx Periodontal disease
code status--Full code
DVT prophylaxis�heparin discontinued
Original Note:
Today's Communication/Plan
-
- discharged patient home with instructions to follow up with PCP
Assessment / Plan
Assessment / Plan
Bilateral kidney masses, prostate mass with lytic osseous lesions, and bladder thickening due to malignancy:
-Patient presented to the ER with general malaise for 2 to 3 months, severe hypertension and malaise, difficulty urinating, weight loss
-CT scan showed very large 14.6 cm left renal cell carcinoma, possible renal cell carcinoma in the right kidney, metastatic retroperitoneal lymphadenopathy, right and left hydronephrosis, possible urinary bladder urothelial carcinoma,
diverticulosis, 5.1 cm lytic osseous metastatic cyst in the sacrum
-MRI shows avidly enhancing mass most likely metastasis in the posterior aspect of S1 and S2 vertebral bodies with moderate canal narrowing, multiple large retroperitoneal lymph nodes which likely represent malignancy
- Patient had left kidney biopsy done with interventional radiology and we are awaiting pathology to further guide treatment
-PSA is 384
-Neurosurgery consulted and they will not see patient as he is asymptomatic
-Urology, oncology consulted
- pt/ot consulted
-Urology suggest follow-up with Dr. Oscar in 2 weeks for outpatient cystoscopy
- Oncology would like to wait the pathology of the renal biopsy to further guide treatment and will continue to follow, will receive results outpatient
Postobstructive kidney injury:
- Urinalysis unremarkable. Urine cx NG
- Creatinine decreased from 6 on admission to 2.5 today
� Bilateral percutaneous nephrostomy tube placement not pursued due to renal function improvement with Finney and level obstruction most likely a bladder. Left renal anatomy distorted by tumor, making left kidney not a candidate for PCN tube.
- continue tamsulosin on discharge
- Keep Finney catheter in place with visiting nurse consult
- CMP with PCP in 1 week
Hypertensive urgency:
-Today patient's blood pressure is 150/98 and well-controlled
-Cardiology was consulted, appreciate input input
- Likely from renal masses.
-Cardiology discontinued patient's 10 mg of Norvasac
�Hydralazine 10 mg IV q6 PRN for BP >160/100.
- continue patient on metoprolol succinate 12.5 mg p.o. daily for blood pressure control and amlodipine 5 mg once daily on discharge
Bigeminy possibly secondary to hyperkalemia
-Ventricular ectopy has improved, no PVCs on telemetry, resolved
- Patient has echo with normal left ventricular function of 52%
- Cardiology has no further inputs regarding this diagnosis
Hyperkalemia�resolved
Potassium 5.5. Normalized to 4.7 after Finney placement
� Likely due to ANGELINE from bilateral hydroureter ureteral nephrosis (level obstruction of bladder)
Severe protein calorie nutrition
Patient reported 20lb weight loss, which is 11% weight loss. meets criteria for severe protein calorie malnutrition of chronic illness with >7.5% weight loss x 3 months, appetite prior to hospital admit <75% for >1 month
� Nutrition consult
Hematuria
Isolated rectal bleeding few months ago�could have been hematuria:
Likely due to renal masses, prostate mass, and possible bladder cancer
Hemoglobin stable; not anemic
- CBC with PCP in 1 week
Hx constipation
- Had bowel movement today and every day this week
Hx Periodontal disease
Full code
DVT prophylaxis�heparin 5000u q12h SC
2g sodium diet
Anticipated Discharge: Today
Subjective/Interval History
-
Date of Service: April 22, 2025
overnight events
No acute medical complaints
Objective Data
-
Labs:
Laboratory Results
04/22/25
09:07
WBC 11.0 H
Hgb 14.1
Hct 43.5
Plt Count 608 H
Sodium 132 L
Potassium 4.7
Chloride 104
Carbon Dioxide 20 L
BUN 39 H
Creatinine 2.5 H
Glucose 252 H
Calcium 9.2
Total Bilirubin 0.5
AST 33
ALT 33
Alkaline Phosphatase 95
Vital Signs:
Vital Signs
Temp Pulse Resp BP Pulse Ox
97.9 F 53 16 164/76 96
04/22/25 07:30 04/22/25 07:30 04/22/25 07:30 04/22/25 07:30 04/22/25 07:30
I&O
04/21/25 04/22/25 04/23/25
06:59 06:59 06:59
Intake Total 480 / 480 1680 / 1680
Output Total 2750 / 2750 2850 / 2850
Balance -2270 / -2270 -1170 / -1170
Review of Systems
-
History Source: Patient
All other systems: Reviewed and negative
Physical Exam
-
General: Well Developed, Well Nourished, No Apparent Distress, Comfortable and Conversant
HEENT: Normocephalic, Atraumatic, Anicteric, Nose Appears Normal and Ears Appear Normal
Respiratory: Clear to Auscultation
Cardiac: Regular Rhythm and S1/S2
GI: Soft, Nontender, Nondistended and Normal Bowel Sounds
Genito-urinary: Finney (Clear urine)
Musculoskeletal: No Clubbing, No Cyanosis and No Edema
Skin: Warm and Dry
Neuro: Awake and Alert
Psych: Calm
Data Reviewed
-
Labs: Discussed with Physician and Discussed with Nurse
[2025-04-22 16:00] VITALS: BP 127/91
--- NOTE | 2025-04-22 17:15 | PTCARENOTE ---
RN did finney care and teaching with patient and at the bedside. Pt demonstrated how to clean, empty and change finney bag. Pt wanted to leave with finney bag instead of leg bag. VN on board to visit pt this week. Pt with no further questions
regarding finney teaching.
--- NOTE | 2025-04-22 18:08 | W.DCSUMMARY ---
Addendum entered and electronically signed by Neva Thompson MD 04/22/25 19:34:
Read, reviewed, and agree. See same day progress note for additional details. Time spent coordinating care, DC planning, review of DC plan of care with resident, transition of care, review of records in EMR, med rec, consults, notes, d/w
consultants, nursing, family, and CM = 40 minutes
Original Note:
Discharge Summary
Discharge Data
Date of Admission: 04/18/25
Date of Discharge: 04/22/25
-
Pending Results: Yes
Hospital Course
Discharging Physician : Dr. Neva Thompson and Dr. Kamron Merchant
Disposition : Home
Primary care physician : Dr. Venus Gurrola
Principal Discharge diagnosis : Bilateral kidney/prostate masses with lytic osseous lesions and bladder thickening suspicious for malignancy, acute kidney injury, hyperkalemia, hypertensive urgency, bigeminy, hematuria/isolated rectal bleeding,
severe protein calorie malnutrition, constipation, periodontal disease
Hospital Course : 69-year-old male with no known past medical history presents to the emergency department upon referral from the [facility] clinic due to severe hypertension, fatigued with general malaise for the past 2 to 3 months,
difficulty urinating as well as difficulty emptying his bowels during this time as well, nocturia and urinary dribbling and weight loss.
Problem #1:
Bilateral kidney and prostate masses with lytic osseous lesions, bladder thickening due to malignancy
Postobstructive acute kidney injury
Hyperkalemia
Hypertensive urgency
Hematuria:
- On presentation to the ED significant labs were WBC of 15.6, potassium 5.5, creatinine of 4.6, PSA screen of 384. Significant vitals were blood pressure of 234/98 and pulse of 118. He then had Rodriguez's catheter inserted which drained brown/bloody
urine, and tamsulosin was started. Started on amlodipine, labetalol 12.5 , and as needed hydralazine for the high blood pressure. For DVT prophylaxis started on heparin 5000 U, and an diet is a a 2 g sodium diet. Based on his presentation and
symptoms they did an abdominal/pelvis CT on 04/18/2025 in the ED which showed (in brief) a very large 14.6 cm left renal cell carcinoma, metastatic retroperitoneal lymphadenopathy, acute right hydroureteronephrosis and acute left hydroureter
secondary to bilateral ureteral obstructions at the level of urinary bladder, urinary bladder urothelial carcinoma, 2.9 cm mass in prostate gland suggesting prostate cancer, diverticulitis in sigmoid colon, 5.1 cm lytic metastasis in sacrum
extending into sacral spinal canal. Dr. Rodriguez Urology was then consulted, and then they consulted medical oncology for suspected metastatic renal cell cancer and metastatic prostate cancer, he also consulted interventional radiology for a
possible bilateral percutaneous nephrostomy stent placement. The stent did not happen as patient's left renal anatomy is distorted by tumor making him not a suitable candidate. A left renal tumor biopsy on 04/20/2025 was performed and the results
are still pending for which she will get the results during his outpatient follow-up with either PCP or oncologist. MRI of the lumbar spine done on 04/21/2025 showed likely metastasis of the S1 and S2 vertebral bodies. The location of the
metastasis prompted a consult with neurosurgery however since patient is asymptomatic, they deferred treatment. PT/OT ordered and they recommend that he can go home. Cardiology also consulted for bigeminy and decided that no further treatment is
necessary as it resolved by itself and patient has a normal echo. on discharge his blood pressure is 127/91. On discharge he is stable and afebrile, physical examination is benign for any positive pertinent findings, his labs are WBC 11.0,
platelet count 608, sodium 132, creatinine 2.5, glucose 252. He was discharged with amlodipine 5 mg once daily, Toprol XL 12.5 mg extended release for the blood pressure and tamsulosin 0.4 once daily to help his obstructive urinary symptoms. He is
to have Rodriguez catheter in place on recommendation of urology and a visiting nurse to help him change it. He is to follow-up with urology in 2 weeks and oncology in 1 week. Please get CBC and CMP done with PCP in 5 days.
Problem #2 periodontal disease:
- Please arrange a visit with dentist in the next upcoming 2 weeks
Important imaging findings :
Abdominal pelvis CT on 04/18/2025:
IMPRESSION:
1. VERY LARGE 14.6 cm LEFT RENAL CELL CARCINOMA.
2. 1.9 cm mass in the right kidney (possibly renal cell carcinoma).
3. Metastatic retroperitoneal lymphadenopathy.
4. MODERATE ACUTE RIGHT HYDROURETERONEPHROSIS and MODERATE ACUTE LEFT HYDROURETER secondary to bilateral ureteral obstructions at the level of the urinary bladder.
5. Severe diffuse thickening of the urinary bladder wall suggesting malignancy (URINARY BLADDER UROTHELIAL CARCINOMA). Rodriguez catheter in the urinary bladder.
6. 2.9 cm mass protruding posteriorly from the prostate gland suggesting PROSTATE CANCER.
7. Small bilateral adrenal adenomas.
8. Severe diverticulosis in the sigmoid colon.
9. Varicoid bronchiectasis in the left lower lobe with a 2.5 cm pulmonary nodule which is likely peripheral endobronchial impaction (less likely pulmonary metastatic disease).
10. 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
Abdominal, biopsy ultrasound on 04/20/2025:
IMPRESSION:
1. Successful ultrasound-guided biopsy of a large left renal mass.
2. Right hydronephrosis appeared to be improved compared to prior CT, and the patient's creatinine was improving, therefore right percutaneous nephrostomy was not placed.
Orbital x-ray on 04/20/2025:
IMPRESSION:
Unremarkable radiographs of the orbits. No radiopaque or metallic foreign bodies appreciated.
Lumbar spine MRI on 04/21/2025:
IMPRESSION:
There is an avidly enhancing mass involving the posterior aspect of the S1 and S2 vertebral bodies which likely represents a metastasis. There is associated moderate canal narrowing.
There is a partially visualized large heterogeneously enhancing mass of the left kidney as well as multiple enlarged retroperitoneal lymph nodes which are similar to recent prior CT and likely represent malignancy.
Multilevel mild degenerative changes within the lumbar spine without significant central canal stenosis. There is mild bilateral neuroforaminal narrowing of L4-L5.
Procedure findings :
Discharge Plan
-
Patient Disposition: Home with Home Care
Discharge Diagnosis/Procedures: Bilateral/kidney/prostate masses with lytic osseous lesions and bladder thickening due to malignancy, acute kidney injury, hyperkalemia, hypertensive urgency, bigeminy secondary to hyperkalemia, hematuria/isolated
rectal bleeding, constipation, severe protein calorie nutrition, history of periodontal disease
Condition: Fair
Diet: Regular
Activity: No restrictions
Driving Restrictions: As prior to admission
Bathing Restrictions: None
Blood Work: CBC and CMP in 1 week with PCP
Others Tests: Pending results of renal biopsy
Other Services: VN
Referrals:
Francis Oscar MD [Active, Urology] - in two weeks
Referral Note: Cystoscopy
Brian Hathaway MD, Resident [Family Practice Resident Year3, General] - in less than 1 week
Referral Note: Please follow up with your PCP for this hospital stay.
Gilles Buckner MD [Active, Hematology / Oncology] - in less than 1 week
Additional Discharge Medication Instructions: take 1 tablet of amlodipine 5 mg daily
Take 1 tablets of metoprolol 12.5 mg daily
Rodriguez catheter to remain in place, Visiting Nurse will assist in changing it as required at home
Prescriptions:
New
metoprolol succinate 25 mg Tablet Extended Release 24 Hr
12.5 mg PO DAILY Qty: 30 0RF
tamsulosin 0.4 mg capsule
0.4 mg PO DAILY Qty: 30 0RF
amlodipine 5 mg tablet
5 mg PO DAILY Qty: 30 0RF
Continued
Vital Prostate Support
2 tab PO DAILY
Discharge Orders:
Discharge Patient (As Directed); Ordered 04/22/25
Ordered By: Kamron Merchant
Discharge Date and Time
Discharge Date/Time: 04/22/25 17:11
Print Language: BRAZILIAN
== END 2025-04-22 17:11 | disposition home or self-care (01) | DRG 722 ==
LOC: 3 WEST ACU 17:59
PROVIDERS: Physician Assistant; Radiology Diagnostic Radiology; Radiology Vascular & Interventional Radiology; ADMITTING PHYSICIAN Hospitalist; ATTENDING PHYSICIAN Internal Medicine; CONSULT PHYSICIAN Internal Medicine Hematology & Oncology; CONSULT PHYSICIAN Nuclear Medicine Nuclear Cardiology; CONSULT PHYSICIAN Surgery; EMERGENCY PHYSICIAN Student in an Organized Health Care Education/Training Program
PROC: 0TB13ZX Excision of Left Kidney, Percutaneous Approach, Diagnostic (ICD-10-PCS; 2025-04-20)
DX: C61 Malignant neoplasm of prostate (principal); E43 Unspecified severe protein-calorie malnutrition; C77.2 Secondary and unspecified malignant neoplasm of intra-abdominal lymph nodes; C79.51 Secondary malignant neoplasm of bone; N17.9 Acute kidney failure, unspecified; K62.5 Hemorrhage of anus and rectum; N13.1 Hydronephrosis with ureteral stricture, not elsewhere classified; D30.02 Benign neoplasm of left kidney; C67.9 Malignant neoplasm of bladder, unspecified; E87.5 Hyperkalemia; R33.8 Other retention of urine; N40.0 Benign prostatic hyperplasia without lower urinary tract symptoms; I16.0 Hypertensive urgency; R63.4 Abnormal weight loss; K59.00 Constipation, unspecified; K05.6 Periodontal disease, unspecified; I49.3 Ventricular premature depolarization; I49.1 Atrial premature depolarization; I10 Essential (primary) hypertension; Z68.24 Body mass index [BMI] 24.0-24.9, adult; Z79.899 Other long term (current) drug therapy
CPT/HCPCS: 50200; 70030; 71250; 72158; 74176; 76705; 76942; 80048; 80053; 81003; 81015; 82805; 82962; 83735; 84484; 85025; 85610; 87086; 88305; 88333; 88341; 88342; 93005; 93306; 96361; 96374; 97161; 97166; 99152; 99153; 99285; A9575; G0103

== ENCOUNTER → 2025-05-11 07:13 | Outpatient (REF) | payer MEDICARE, OTHER, SELFPAY ==
[2025-05-11] VITALS (10 sets, daily range): BP systolic 50–163; BP diastolic 72–83
== END ==
LOC: RADI 07:13
PROVIDERS: ATTENDING PHYSICIAN Internal Medicine Hematology & Oncology
DX: C79.51 Secondary malignant neoplasm of bone (principal); C61 Malignant neoplasm of prostate
CPT/HCPCS: 20225; 77012; 88307; 88333; 88334; 88342; 99152; 99153

== ENCOUNTER → 2025-05-30 09:49 | Outpatient (REF) | payer MEDICARE, OTHER, SELFPAY ==
[2025-05-30 10:37] LABS: Urine Character Clear (Clear)
[2025-05-30 11:05] LABS: Urine Red Blood Cell 0-2 /HPF (0-2); Urine Squamous Cell 0-2 /LPF (Few)
== END ==
LOC: CLAB 09:49
PROVIDERS: ATTENDING PHYSICIAN Nurse Practitioner Family
DX: N39.0 Urinary tract infection, site not specified (principal)
CPT/HCPCS: 81003; 81015; 87086

== ENCOUNTER 2025-06-19 17:24 | Inpatient (IN) | payer MEDICARE, OTHER, SELFPAY ==
[2025-06-19] VITALS (10 sets, daily range): BP systolic 142–169; BP diastolic 88–98; BMI 22.7
--- NOTE | 2025-06-19 11:43 | ED.GENMED ---
History of Present Illness
General
Chief Complaint: Weakness
Source: patient
Exam Limitations: none
Time Seen by Provider: 06/19/25 11:29
History of Present Illness
History of Present Illness:
69-year-old male with recently diagnosed prostate cancer presents in referral from oncology office for generalized weakness. He had a fall this morning. Patient denies any injury or pain from the fall. He denies chest pain or shortness of breath.
His significant other states that he has had a significantly decreased appetite. No cough. No other complaints at this time. His significant other also he has been slightly confused over the couple days
Phy Exam
Physical Exam
Physical Exam:
General: Well-appearing male no acute respiratory distress
HEENT: Normal cephalic atraumatic
Heart: Regular rate and rhythm
Lungs: Clear no wheeze
Abdomen is soft nontender
Extremities: No cyanosis or edema
Neurologic exam: Alert patient is ambulatory oriented to person and place. No facial asymmetry no unilateral weakness
Course
Orders/Labs/Results
Orders:
Orders
06/19/25 11:36
Complete Blood Count/With Diff Urgent
Comprehensive Metabolic Panel Urgent
06/19/25 11:42
CT Head W/o Iv Contrast Urgent
Reason For Exam: weakness, falls, prostate CA, ELEV CR, LOW GFR
COVID-19 Antigen Urgent
Source: Nasal Swab
Influenza A+B Rapid Molecular Urgent
SANDRA Source: Nasal Swab
Specimen Description:
Date Specimen was Collected: 06/19/25
Time Specimen was Collected: 11:40
06/19/25 13:35
Urinalysis Reflex To Culture Urgent
Date Specimen was Collected: 06/19/25
Time Specimen was Collected: 11:40
Urine Microscopic Reflex Cult Urgent
Urine Culture Urgent
SANDRA Source: U
Specimen Description:
Date Specimen was Collected: 06/19/25
Time Specimen was Collected: 11:40
06/19/25 15:45
0.9% Sodium Chloride 1000 ml [Nss] 1,000 ml IV BOLUS
CefTRIAXone [Rocephin] 1,000 mg IV NOW STA
Abnormal Lab Results
06/19/25 06/19/25
11:36 13:35
WBC 22.3 H 10^3/uL
(4.8-10.8)
RBC 4.34 L 10^6/uL
(4.70-6.10)
Hgb 12.3 L g/dL
(13.0-18.0)
Hct 37.8 L %
(39.0-52.0)
MCHC 32.5 L g/dL
(33.0-37.0)
Plt Count 723 H 10^3/uL
(130-400)
Abs Immat Gran (auto) 0.4 H 10^3/uL
(0-0.05)
Absolute Neuts (auto) 18.6 H 10^3/uL
(1.4-6.5)
Absolute Monos (auto) 1.8 H 10^3/uL
(0.1-0.6)
Immature Gran % 1.8 H %
(0-0.5)
Neutrophils % 83.3 H %
(42.2-75.2)
Lymphocytes % 5.8 L %
(20.5-51.1)
Sodium 129 L mmol/L
(135-145)
Potassium 5.4 H mmol/L
(3.5-5.1)
Chloride 94 L mmol/L
(98-107)
BUN 61 H mg/dl
(9-20)
Creatinine 2.6 H mg/dL
(0.7-1.3)
Glucose 186 H mg/dl
(70-99)
ALT 54 H U/L
(0-50)
Alkaline Phosphatase 180 H U/L
(38-126)
Ur Occult Blood Reflex 1+ A
(Negative)
Leukocyte Esterase Rfl 3+ A
(Negative)
Urine RBC 3-6 A /HPF
(0-2)
Urine WBC (Reflex) 60-70 A /HPF
(0-5)
Urine Bacteria (Reflex) Few A
(Negative)
Urine Albumin (Reflex) 1+ A
(Neg - Trace)
06/19/25 11:36
06/19/25 11:36
Vital Signs
Initial and Last Documented VS:
Initial Vital Signs
Temp Pulse Resp BP Pulse Ox
98.0 F 102 20 153/98 97
06/19/25 11:18 06/19/25 11:18 06/19/25 11:18 06/19/25 11:18 06/19/25 11:18
Last Documented Vital Signs
Temp Pulse Resp BP Pulse Ox
98.0 F 98 21 149/90 95
06/19/25 11:18 06/19/25 15:15 06/19/25 15:15 06/19/25 15:00 06/19/25 15:15
MDM/Problems Addressed
Differential Diagnosis Includes:
Patient with prostate cancer. Concern oncology's behalf for metastatic issues. Given weakness and intermittent confusion with falls will order CT of the head. Will check labs.
*Pulse Oximetry
SaO2: 97
Oxygen Mode of Delivery: Room air
Patient hypoxic: no
*Critical Care Note
Total Time (30-74mins, 75-104mins- exclusive of procedures): Not Applicable
Update Note
Update Note:
CT head negative. Urinalysis concerning for UTI. He has leukocytosis with a white blood cell count of 22,000. Vital signs remained stable. I suspect weakness or confusion may be related to underlying UTI. Fluids and Rocephin ordered. Will
admit to hospital
ED Attending Note
-
Portions of this chart may have been created with voice recognition software.� Occasional wrong word or��sound alike� substitutions may have occurred due to the inherent limitations of voice recognition software.
Discharge Plan
Departure
Patient Disposition: Admit
Date of Disposition: 06/19/25
Time of Disposition: 15:47
Presentation/result/management discussed w/ accepting MD/DO: Hospitalist
Patient with high blood pressure during this ER visit?: No
Discharge Problem:
Acute UTI
Prescriptions:
No Action
metoprolol succinate 25 mg Tablet Extended Release 24 Hr
12.5 mg PO DAILY Qty: 30 0RF
tamsulosin 0.4 mg capsule
0.4 mg PO DAILY Qty: 30 0RF
amlodipine 5 mg tablet
5 mg PO DAILY Qty: 30 0RF
bicalutamide 50 mg Tablet
50 mg PO DAILY
Referrals:
UNKNOWN - PT DOES,NOT KNOW [Family Provider]
Interventions
Interventions:
*General Assessment Last Done: 06/19/25 11:18
*Neglect/Abuse Screening Last Done: 06/19/25 11:18
*ED COVID-19 Vaccine History Last Done: 06/19/25 11:49
*ED Influenza Vaccine History Last Done: 06/19/25 11:49
[facility] Fall Risk Assessment Tool Last Done: 06/19/25 11:49
*Risk Screen - Suicide (C-SSRS) Last Done: 06/19/25 11:49
ED- Cardiac Assessment Last Done: 06/19/25 11:48
ED- Neurological Assessment Last Done: 06/19/25 11:48
ED- Pulmonary Assessment Last Done: 06/19/25 11:48
Discharge Date and Time
Print Language: [email or web address]
[2025-06-19 11:59] LABS: Hematocrit 37.8 % (39.0-52.0); Hemoglobin 12.3 g/dL (13.0-18.0); Mean Corp Hgb Conc. 32.5 g/dL (33.0-37.0); Mean Corpuscular Volume 87.1 fL (80.0-94.0); Nucleated Red Blood Cells % 0 % (-); Platelet Count 723 10^3/uL (130-400); Red Cell Dist. Width 13.4 % (11.5-14.5)
[2025-06-19 12:12] LABS: COVID-19 Antigen Negative (Negative)
[2025-06-19 12:19] LABS: ALT (SGPT) 54 U/L (0-50); AST (SGOT) 30 U/L (17-59); Albumin 3.5 g/dl (3.5-5.0); Alkaline Phosphatase 180 U/L (38-126); Blood Urea Nitrogen 61 mg/dl (9-20); Calcium 9.1 mg/dl (8.4-10.2); Carbon Dioxide 25 mmol/L (22-30); Chloride 94 mmol/L (98-107); Glucose 186 mg/dl (70-99); Potassium 5.4 mmol/L (3.5-5.1); Sodium 129 mmol/L (135-145); Total Protein 7.1 g/dl (6.3-8.2); eGFR 25.88
[2025-06-19 13:50] LABS: Urine Character Clear (Clear)
[2025-06-19 14:00] LABS: Urine Squamous Cell 0-2 /LPF (Few)
[2025-06-19 14:02] LABS: Urine White Cell 60-70 /HPF (0-5)
[2025-06-19] MEDS: ROCEPHIN 1000 MG IV (16:10)
[2025-06-19] MEDS: NSS 1000 IV ×2 (16:10→20:17)
--- NOTE | 2025-06-19 16:54 | HPS.HSE ---
Addendum entered and electronically signed by Jose J Adams MD 06/20/25 08:33:
I personally performed a history and physical exam of the patient and discussed management with the resident. I reviewed the resident's note and agree with the documented findings and plan of care HPI/CC.
69-year-old male with some diagnosis of metastatic prostate cancer involving sacral bone/bladder, left renal cell oncocytoma, prostatomegaly, urinary retention requiring episodic straight catheterization, CKD was sent to ER from outpatient oncology
office after patient reportedly have a mechanical fall in the morning. Patient was feeling excessively weak. Patient has recently been diagnosed for metastatic prostate cancer and was on bicalutamide. Patient have also undergone radiation for
sacral lytic lesions. Patient was given dose of Lupron in last office visit with oncology. Here patient denies of having any ongoing lower abdominal discomfort/dysuria. Does notice minimal hematuria at times although no worsening reported.
Patient was straight cathing himself every 6 hours for last few days but have gone down to once daily and able to void with some straining. Denies any episodes of abdominal pain nausea vomiting fever. Regarding generalized weakness patient was
walking to the bathroom when he tripped and fell. Denies any syncope. No head injury reported.
HEENT: No pallor, cyanosis, or jaundice. Throat clear.
NECK: Supple. No JVD.
RESPIRATORY: Lungs clear to auscultation.
CVS: S1, S2 normal. RRR. No murmur, rub or gallop.
ABDOMEN: Soft, non-tender. No distension. BS+/normal.
EXTREMITIES: No peripheral cyanosis or edema.
SENIOR TECHNICAL EDITOR: AOx3. No focal deficits.
1. Complicated UTI-urinalysis showing pyuria and bacteriuria. Patient known history of prostate cancer/metastatic bladder involvement and bilateral hydroureteronephrosis patient to be treated as a complicated UTI. Patient got IV Rocephin in the
ER, no history of MDR infection or recurrent UTI in the past. Follow-up urine and blood culture report. Total WBC count of 22K patient afebrile. CT abdomen pelvis ordered to rule out any new complicating urological problems . continue monitoring
in [facility] floor
2. ANGELINE on CKD stage unknown -patient has significant renal dysfunction on last visit due to bladder outlet obstruction and bilateral ureteral obstruction. Apparently nephrostomy tubes were attempted and unable to be done due to altered anatomy of
kidney. Rodriguez catheter was placed which was removed on previous discharge. Patient was straight cathing himself. Continue monitoring with straight cath/bladder scan. May require Rodriguez placement. Avoid nephrotoxic medication.
3. Metastatic prostate cancer -involving sacral bone with lytic lesion s/p radiation. Involving bladder wall as well. Have pulmonary nodules of unclear status, pending PET scan with oncology office. Currently on bicalutamide therapy. Will be
continued.
4. Hyponatremia -suspecting due to low oral intake. Check urine osmolality and urine sodium.
5. Hyperkalemia -driven by ANGELINE suspecting. On NOE/ARB. Not on potassium supplement. No acidosis. No other meds explaining this. Maintain a low potassium diet
6. Generalized weakness -physical therapy evaluation and may require rehab placement if appropriate.
Total time spent : 80 mins
Original Note:
Family Physician
-
Family Physician: Francy Winchester
Chief Complaint
-
Generalized weakness
History of Present Illness
This is a 69-year-old male who was recently diagnosed with metastatic prostate cancer, history of hypertension, left renal oncocytoma, mild urinary incontinence presented from the oncology office with concerns of generalized weakness.
He reports that he recently started Lupron treatment with oncologist.
He completed 1 week of radiation therapy for sacral lesion in April 2025.
He had a complicated hospital stay back in March 2025 when he had an ANGELINE, hyperkalemia. At that time CT abdomen pelvis showed bilateral ureteral obstructions and there was an attempt to perform the nephrostomy however was not completed due to
difficult anatomy. There was a biopsy of left renal mass was obtained which returned showed oncocytoma.
Last month he underwent a bone biopsy for his sacral region which showed metastatic prostate adenocarcinoma. He has been following up with Dr. Buckner.
reported that he had some confusion as well in the morning and he had a fall on the When he felt unsteady. Denies hitting the head. For last few days he has been noticing some burning with urination as well. Since the last hospital stay they
have been doing a straight cath at home which was initially every 6 hour however lately it is once a day at bedtime.
Denies any chest pain, trouble breathing, fever or chills, headache or any visual changes
In the ER initial workup showed leukocytosis 22.3, hemoglobin of 12.3, sodium of 129, potassium 5.4, creatinine of 2.6 (creatinine was 2.0 on 06/01/2025 at outpatient lab)
Medical History
Past Medical History
Past Medical History: Reports GERD and HTN
Additional Past Medical History:
Left renal oncocytoma, metastatic prostate cancer
Past Surgical History: Reports Orthopedic
Social History
Tobacco: Former Smoker
Alcohol: None
Drug: None
Personal:
Living: With Family
Employment: Retired
Family History
Family History: Not pertinent
Allergies / Home Medications
Allergies reflects when Allergies were last updated in [employer].
Home Medications with original date entered in [employer]
Allergy/Medication List:
Allergies
Allergy/AdvReac Type Severity Reaction Status Date / Time
No Known Allergies Allergy Verified 06/19/25 11:22
Home Medications
amlodipine 5 mg tablet 5 mg PO DAILY #30 tabs 04/22/25
metoprolol succinate 25 mg tablet,extended release 24 hr 12.5 mg (1/2 x 25 mg) PO DAILY #30 tabs 04/22/25
tamsulosin 0.4 mg capsule 0.4 mg PO DAILY #30 caps 04/22/25
bicalutamide 50 mg tablet 50 mg PO DAILY 05/11/25
Review of Systems
-
History Source: Patient and Family
Constitutional: Reports Fatigue; Denies Fever
Respiratory: Reports No Symptoms
Cardiac: Reports No Symptoms
Abdomen/GI: Reports No Symptoms
: Reports Dysuria and Difficulty Voiding
Skin: Reports No Symptoms
Neurological: Reports Weakness
Physical Exam
Vital Signs
Vital Signs
Temp Pulse Resp BP Pulse Ox
98.0 F 96 19 152/89 97
06/19/25 11:18 06/19/25 16:00 06/19/25 16:00 06/19/25 16:00 06/19/25 16:00
Physical Exam
General: Comfortable, Conversant and Appears Chronically Ill
Respiratory: Clear and Non Labored Respirations
Cardiac: S1/S2 and Regular Rhythm
GI: Soft, Non Tender and Non Distended
Skin: Warm
Neuro: Awake, Alert and Oriented
Psych: Calm
Laboratory Results
-
06/19/25 11:36
06/19/25 11:36
Laboratory Results
Total Bilirubin 0.5 mg/dl (0.2-1.3) 06/19/25 11:36
AST 30 U/L (17-59) 06/19/25 11:36
ALT 54 U/L (0-50) H 06/19/25 11:36
Alkaline Phosphatase 180 U/L (38-126) H 06/19/25 11:36
Data Reviewed
-
Lab Data: Labs Reviewed by me, Discussed with Physician and Discussed with Patient
Old Records: Reviewed
Impression/Plan
-
IMPRESSION: 69-year-old male with recent diagnosis of metastatic prostate cancer presented from the oncology office with concerns of generalized weakness.
PLAN:
# Acute UTI
# 1 episode of confusion per
# Hematuria
- Head CT negative
- Continue with IV fluids
- Continue with IV CFTX
- Awaiting blood urine culture result
- check bladder scan
# ANGELINE on CKD 4 ; likely postrenal
# Hyperkalemia ; likely secondary to ANGELINE
# Left renal oncocytoma
- Serum creatinine of 2.0 on 06/01/2025 at outpatient lab, potassium was 4.5
- Continue with IV fluids for now
- Repeat labs in the morning
- Consideration for nephrology consult if no improvement
- Check updated CT abdomen pelvis
# Metastatic prostate cancer
- Continue with home Casodex
- Status post 1 dose of Lupron in April 2024
- S/p 1 week of radiation therapy for sacral lesion
# Hyponatremia
- Unclear cause ; check urine studies
- Continue with IV fluids for now
# Essential hypertension
# History of hypertensive urgency
- Continue home amlodipine and metoprolol
# History of periodontic disease
Diet: Regular (low potassium)
DVT prophylaxis: Heparin sc
CODE STATUS full
--- NOTE | 2025-06-19 18:14 | EDCM ---
Reviewed chart and met with pt bedside in ED. Lives with his in 2 [address], [address]. Has first floor half bath, full flight to second floor bedroom and full bath.
Independent in ADLs, personal care and ambulation at baseline, no assistive devices, no DME.
PMH includes Metastatic prostate cancer, HTN, L renal oncocytoma, GERD
Confirms prescription coverage.
Current with [facility], no hx SNF
PCP: [facility]
Pharmacy; [address]
Discharge disposition pending ongoing medical evaluation, CM will continue to follow for all discharge planning needs.
[2025-06-19] MEDS: HEPARIN 5000 UNITS SC (20:18)
[2025-06-19] MEDS: COLACE 100 MG PO (21:52)
--- NOTE | 2025-06-20 07:09 | W.PN.HOSP.TC ---
Today's Communication/Plan
-
Urology consult
Check PSA
Rodriguez
Assessment / Plan
Assessment / Plan
IMPRESSION: 69-year-old male with recent diagnosis of metastatic prostate cancer presented from the oncology office with concerns of generalized weakness.
PLAN:
# Acute UTI ; complicated ; unclear if related to home straight cath
# 1 episode of confusion per
# Hematuria
- Head CT negative
- Continue with IV fluids
- Continue with IV CFTX
- Awaiting blood urine culture result
- Check PSA
CT abdomen pelvis 06/19/2025:
IMPRESSION:
1. Moderately distended urinary bladder demonstrating moderate diffuse wall thickening and trabeculation (probably acute cystitis superimposed upon urinary bladder outlet obstruction).
2. SEVERE BILATERAL HYDROURETERONEPHROSIS secondary to urinary bladder outlet obstruction.
3. LARGE 8.6 cm PROSTATE CANCER extending posteriorly to invade the anterior wall of the rectum (increased in size since 04/18/2025 and likely causing urinary bladder outlet obstruction).
4. VERY LARGE 11.3 cm LEFT RENAL CELL CARCINOMA.
5. 1.9 cm right renal mass (possibly renal cell carcinoma).
6. Mild amount of metastatic retroperitoneal lymphadenopathy.
7. Small bilateral adrenal adenomas.
8. Severe diverticulosis in the sigmoid colon.
9. Varicoid bronchiectasis in the left lower lobe.
10. 2.3 cm left lower lobe pulmonary nodule which appears unchanged.
11. Mixed lytic and sclerotic osseous metastasis in the sacrum.
# Generalized weakness
- PT/OT
# ANGLEINE on CKD 4 ; likely postrenal
# Hyperkalemia ; likely secondary to ANGELINE ; resolved ; continue with low potassium diet
# Left renal oncocytoma
# Urinary retention
- Serum creatinine of 2.0 on 06/01/2025 at outpatient lab, potassium was 4.5
- Continue with IV fluids for now
- Consult urology
- Ordered Rodriguez
# Metastatic prostate cancer
- Continue with home Casodex
- Status post 1 dose of Lupron in April 2024
- S/p 1 week of radiation therapy for sacral lesion
# Hyponatremia ; likely secondary to poor oral intake
- Unclear cause ; improving
- Continue with IV fluids for now
# Essential hypertension
# History of hypertensive urgency
- Continue home amlodipine and metoprolol
# GERD
- Continue with PPI
# History of periodontic disease
Diet: Regular (low potassium)
DVT prophylaxis: SCDs
CODE STATUS full
Anticipated Discharge: 24 - 48 hours
Subjective/Interval History
-
Date of Service: June 20, 2025
AVSS. Patient offers no new complaints.
Objective Data
-
Labs:
Laboratory Results
06/20/25
06:00
WBC Pending
Hgb Pending
Hct Pending
Plt Count Pending
Sodium Pending
Potassium Pending
Chloride Pending
Carbon Dioxide Pending
BUN Pending
Creatinine Pending
Glucose Pending
Calcium Pending
Total Bilirubin Pending
AST Pending
ALT Pending
Alkaline Phosphatase Pending
Vital Signs:
Vital Signs
Temp Pulse Resp BP Pulse Ox
98.8 F 100 18 158/89 97
06/19/25 23:21 06/19/25 23:21 06/19/25 23:21 06/19/25 23:21 06/19/25 23:21
I&O
06/19/25 06/20/25 06/21/25
06:59 06:59 06:59
Intake Total 960 / 960
Output Total 500 / 500
Balance 460 / 460
Review of Systems
-
History Source: Patient
All other systems: Reviewed and negative
Physical Exam
-
General: Well Nourished, No Apparent Distress, Comfortable and Conversant
HEENT: Normocephalic and Atraumatic
Respiratory: Clear to Auscultation and Non Labored Respirations
Cardiac: Regular Rhythm and S1/S2
GI: Soft, Nontender, Nondistended and Normal Bowel Sounds
Musculoskeletal: No Clubbing, No Cyanosis and No Edema
Skin: Warm and Dry
Neuro: Awake, Alert and Oriented
Psych: Calm
Data Reviewed
-
CT Scan: Report Reviewed by me, Discussed with Physician and Discussed with Patient
Labs: Labs Reviewed by me, Discussed with Physician, Discussed with Patient and Discussed with Family
[2025-06-20] MEDS: PROTONIX 40 MG PO (07:53)
[2025-06-20] MEDS: FLOMAX 0.4 MG PO (07:53)
[2025-06-20] MEDS: NORVASC 5 MG PO (07:53)
[2025-06-20 07:54] LABS: Hematocrit 32.8 % (39.0-52.0); Hemoglobin 10.7 g/dL (13.0-18.0); Mean Corp Hgb Conc. 32.6 g/dL (33.0-37.0); Mean Corpuscular Volume 84.3 fL (80.0-94.0); Nucleated Red Blood Cells % 0 % (-); Platelet Count 589 10^3/uL (130-400); Red Cell Dist. Width 13.7 % (11.5-14.5)
[2025-06-20] MEDS: HEPARIN 5000 UNITS SC (07:54)
[2025-06-20] MEDS: CASODEX 50 MG PO (07:54)
[2025-06-20] MEDS: TOPROL XL 12.5 MG PO (07:54)
[2025-06-20 08:11] LABS: ALT (SGPT) 41 U/L (0-50); AST (SGOT) 22 U/L (17-59); Albumin 2.9 g/dl (3.5-5.0); Alkaline Phosphatase 152 U/L (38-126); Blood Urea Nitrogen 52 mg/dl (9-20); Calcium 8.9 mg/dl (8.4-10.2); Carbon Dioxide 24 mmol/L (22-30); Chloride 101 mmol/L (98-107); Estimated Creatinine Clearance 29 ml/min; Glucose 163 mg/dl (70-99); Potassium 5.0 mmol/L (3.5-5.1); Sodium 132 mmol/L (135-145); Total Protein 6.0 g/dl (6.3-8.2); eGFR 25.88
[2025-06-20] MEDS: COLACE PO ×2 (08:14→22:02)
[2025-06-20 08:37] VITALS: BP 143/93
--- NOTE | 2025-06-20 09:29 | VNURNOTE ---
Addendum entered by Joyce Zavala RN 06/20/25 12:00:
[facility] Resumption referral placed in [facility].
Original Note:
Chart reviewed. Patient is current with [facility]. Will continue to follow hospital course and DC plans.
[2025-06-20 10:30] VITALS: BP 130/81; PULSE 96; O2SAT 96
--- NOTE | 2025-06-20 10:52 | PN.CDI ---
CDI
- -
CDI:
Physician Documentation Request
Admit Date: 06/19/25 17:24
Dear Doctor,
Please review the following and provide your response in the progress notes.
Clinical Indicators:
- 06/19 H&P patient admit due to UTI
- 'Patient was straight cathing himself every 6 hours for last few days but have gone down to once daily and able to void with some straining'
- Metastatic prostate cancer with mets to bone, bladder, left renal cell oncocytoma
Please clarify the relationship between these conditions:
Yes, _UTI__ is related to/associated with/due to _straight cath__.
No, _UTI__ is not related to/associated with/due to _straight cath__ but it is due to . (Please specify)
Unable to determine
Use of terms such as suspected, likely, concern for, or probable (associated with a specific diagnosis that is being evaluated, monitored, or treated as if it exists) are acceptable and can be coded in the inpatient setting, when documented at the
time of discharge.
Thank you,
Brenden Gan RN
CDI Specialist
Please use your independent medical judgment in providing your response.
[2025-06-20 11:07] VITALS: BMI 22.7
--- NOTE | 2025-06-20 11:58 | CON.MD ---
Consultation - Medical
-
pt with complex hx; widely met prostate cancer/large left renal oncocytoma/urinary retention and renal insuff
managed as outpt with self cath/ lupron and casodex
admitted with weakness
elevated wbc
ua +
cr level at his new baseline
ct showed bilateral hydro in addition to large left renal mass
plan
finney placed
check ucx
check psa
trend cr with finney in place- if does not improve- recheck u/s and consider right perc tube
Consultation
-
Date/Time Consultation Requested: 06/20/25 at 10am
Date/Time Consultation Performed: 06/20/25 at noon
Requesting Provider: Dr Adams
Performing Provider: Dr Monroe
Reason for Consultation: prostate cancer
--- NOTE | 2025-06-20 12:19 | CM ---
Urine and blood cultures pending. Anticipating DC on Wednesday per Dr. Adams. Continues on IV ABX and IV fluids Will follow for additional DC needs
Plan: home with [facility].
[2025-06-20 12:31] LABS: PSA, Total - Screen 14.70 ng/ml (0.0-4.0)
[2025-06-20] MEDS: NSS 1000 IV (12:31)
[2025-06-20] MEDS: ROCEPHIN 1000 MG IV (14:55)
[2025-06-20] MEDS: STERILE WATER FOR INJECTION 10 ML IV (14:55)
[2025-06-20 15:59] VITALS: BP 146/89
[2025-06-20 23:04] VITALS: BP 150/88
[2025-06-21] MEDS: NSS 1000 IV (02:13)
[2025-06-21 07:24] LABS: Hematocrit 31.7 % (39.0-52.0); Hemoglobin 10.5 g/dL (13.0-18.0); Mean Corp Hgb Conc. 33.1 g/dL (33.0-37.0); Mean Corpuscular Volume 85.9 fL (80.0-94.0); Platelet Count 584 10^3/uL (130-400); Red Cell Dist. Width 13.5 % (11.5-14.5)
[2025-06-21 07:37] VITALS: BP 153/91
[2025-06-21] MEDS: TOPROL XL 12.5 MG PO (07:40)
[2025-06-21] MEDS: COLACE 100 MG PO (07:40)
[2025-06-21] MEDS: PROTONIX 40 MG PO (07:41)
[2025-06-21] MEDS: NORVASC 5 MG PO (07:41)
[2025-06-21] MEDS: FLOMAX 0.4 MG PO (07:41)
[2025-06-21] MEDS: CASODEX 50 MG PO (07:41)
[2025-06-21 07:58] LABS: Blood Urea Nitrogen 41 mg/dl (9-20); Calcium 8.8 mg/dl (8.4-10.2); Carbon Dioxide 23 mmol/L (22-30); Chloride 102 mmol/L (98-107); Estimated Creatinine Clearance 39 ml/min; Glucose 122 mg/dl (70-99); Potassium 4.7 mmol/L (3.5-5.1); Sodium 134 mmol/L (135-145); eGFR 37.71
--- NOTE | 2025-06-21 08:28 | W.PN.HOSP.TC ---
Addendum entered and electronically signed by Jose J Adams MD 06/21/25 15:07:
Yes UTI is related to need of straight catheterization
Original Note:
Today's Communication/Plan
-
Maintain finney for now
trend S Cr in the AM
Home health upon dc
Assessment / Plan
Assessment / Plan
IMPRESSION: 69-year-old male with recent diagnosis of metastatic prostate cancer presented from the oncology office with concerns of generalized weakness.
PLAN:
# Acute UTI ; complicated ; unclear if related to home straight cath
# 1 episode of confusion per
# Hematuria ; urine remained clean with Finney
- Head CT negative
- Continue with IV fluids
- Continue with IV CFTX ; day 3
- Awaiting blood urine culture result ; negative to date
- PSA 14.7 ( was 384 in 04/21)
- Leukocytosis improving
- continue with Finney
CT abdomen pelvis 06/19/2025:
IMPRESSION:
1. Moderately distended urinary bladder demonstrating moderate diffuse wall thickening and trabeculation (probably acute cystitis superimposed upon urinary bladder outlet obstruction).
2. SEVERE BILATERAL HYDROURETERONEPHROSIS secondary to urinary bladder outlet obstruction.
3. LARGE 8.6 cm PROSTATE CANCER extending posteriorly to invade the anterior wall of the rectum (increased in size since 04/18/2025 and likely causing urinary bladder outlet obstruction).
4. VERY LARGE 11.3 cm LEFT RENAL CELL CARCINOMA.
5. 1.9 cm right renal mass (possibly renal cell carcinoma).
6. Mild amount of metastatic retroperitoneal lymphadenopathy.
7. Small bilateral adrenal adenomas.
8. Severe diverticulosis in the sigmoid colon.
9. Varicoid bronchiectasis in the left lower lobe.
10. 2.3 cm left lower lobe pulmonary nodule which appears unchanged.
11. Mixed lytic and sclerotic osseous metastasis in the sacrum.
# Generalized weakness
- PT recs home pt upon dc
# ANGELINE on CKD 4 ; likely postrenal
# Hyperkalemia ; likely secondary to ANGELINE ; resolved ; continue with low potassium diet
# Left renal oncocytoma
# Urinary retention
- Serum creatinine of 2.0 on 06/01/2025 at outpatient lab, potassium was 4.5
- Continue with IV fluids for now
- Urology following
- Serum creatinine improved to 1.9 today after insertion of Finney yesterday
# Metastatic prostate cancer
- Continue with home Casodex
- Status post 1 dose of Lupron in April 2024
- S/p 1 week of radiation therapy for sacral lesion
# Hyponatremia ; likely secondary to poor oral intake
- Improved with IV fluids
# Essential hypertension
# History of hypertensive urgency
- Continue home amlodipine and metoprolol
# GERD
- Continue with PPI
# History of periodontic disease
Diet: Regular (low potassium)
DVT prophylaxis: SCDs
CODE STATUS full
Anticipated Discharge: Within 24 hours
Subjective/Interval History
-
Date of Service: June 21, 2025
AFVSS. Offers no new complaints.
Objective Data
-
Labs:
Laboratory Results
06/21/25
06:41
WBC 16.2 H
Hgb 10.5 L
Hct 31.7 L
Plt Count 584 H
Sodium 134 L
Potassium 4.7
Chloride 102
Carbon Dioxide 23
BUN 41 H
Creatinine 1.9 H
Glucose 122 H
Calcium 8.8
Vital Signs:
Vital Signs
Temp Pulse Resp BP Pulse Ox
98.5 F 93 16 153/91 95
06/21/25 07:37 06/21/25 07:40 06/21/25 07:37 06/21/25 07:40 06/21/25 07:37
I&O
06/20/25 06/21/2506/22/25
06:59 06:59 06:59
Intake Total 960 / 960 2280 / 2280
Output Total 500 / 500 4300 / 4300
Balance 460 / 460 -2019 /
Review of Systems
-
History Source: Patient
All other systems: Reviewed and negative
Physical Exam
-
General: Well Nourished, No Apparent Distress, Comfortable and Conversant
HEENT: Normocephalic and Atraumatic
Respiratory: Clear to Auscultation and Non Labored Respirations
Cardiac: Regular Rhythm and S1/S2
GI: Soft, Nontender, Nondistended and Normal Bowel Sounds
Genito-urinary: Finney
Musculoskeletal: No Clubbing, No Cyanosis and No Edema
Skin: Warm and Dry
Neuro: Awake, Alert and Oriented
Psych: Calm
Data Reviewed
-
Labs: Labs Reviewed by me, Discussed with Physician and Discussed with Patient
--- NOTE | 2025-06-21 09:07 | W.PN.URO.CBU ---
Today's Communication / Plan
-
continue finney
Assessment / Plan
-
large left renal mass- oncocytoma
met prostate cancer with sig local extension
hydro and renal insuff
urinary obstruction
pt is much improved
suspect with excellent UO and declining cr level- hydro again secondary to outlet obstruction and would leave finney and discharge pt with cath at this juncture-
ucx negative- but would finish empiric antibx course
needs outpt f/u with dr gilbert at time of discharge for cysto
no intervention needed at this time
psa declines indicates some response in terms of prostate ca
Diagnosis
-
Date of Service: June 21, 2025
-
Patient Diagnosis:
met prostate cancer with sig local extension
large left renal mass- oncocytoma
renal insuff
urinary retention
hydro
Subjective
-
pt feels much better today
finney in place- urine clear
cr down to 1.9- his lowest level in 2 months
wbc downtrending
psa down to 14
cx's negative
Objective
-
Vital Signs
Temp Pulse Resp BP Pulse Ox
98.5 F 93 16 153/91 95
06/21/25 07:37 06/21/25 07:40 06/21/25 07:37 06/21/25 07:40 06/21/25 07:37
Intake and Output
06/20/25 06/21/25 06/22/25
06:59 06:59 06:59
Intake Total 960 / 960 2280 / 2280
Output Total 500 / 500 4300 / 4300
Balance 460 / 460 -2020 / -2019
Intake:
Oral fluids 960 / 960 1380 / 1380
IV fluids (Total) 900 / 900
Output:
Urine, Finney 2700 / 2700
Urine, Voided 1600 / 1600
Straight cath output 500 / 500
Other:
How many times incontinent 6
MODERATE amount urine
How many times incontinent 1
SATURATED amount urine
Number of approximated SMALL 6
amounts of urine
Laboratory Results
06/21/25 06:41
06/21/25 06:41
Review of Systems
-
Constitutional: Fatigue (improved)
Respiratory: No Symptoms
Cardiac: No Symptoms
Abdomen/GI: No Symptoms
: Other (finney)
Physical Exam
-
General - no acute distress
Abdomen - soft, non-tender
Genitalia - normal- finney in place
[2025-06-21] MEDS: STERILE WATER FOR INJECTION 10 ML IV (14:50)
[2025-06-21] MEDS: ROCEPHIN 1000 MG IV (14:50)
[2025-06-21 15:18] VITALS: BP 152/91
[2025-06-21] MEDS: COLACE PO (19:03)
[2025-06-21 23:41] VITALS: BP 133/86
--- NOTE | 2025-06-22 07:14 | W.PN.HOSP.TC ---
Addendum entered and electronically signed by Jose J Adams MD 06/24/25 16:18:
In response to CDI query
Stage 1 sacrum pressure ulcer, POA
Addendum entered and electronically signed by Jose J Adams MD 06/22/25 13:47:
I saw and evaluated the patient. I reviewed the resident�s note and agree with findings and plan as documented in the resident�s note.
1. Complicated UTI-urinalysis showing pyuria and bacteriuria. Patient known history of prostate cancer/metastatic bladder involvement and bilateral hydro-ureteronephrosis patient to be treated as a complicated UTI. Patient got IV Rocephin in the
ER, no history of MDR infection or recurrent UTI in the past. Urine and blood culture report negative. Total WBC count of 22K patient afebrile in ER - TWBC has been trending down. CTAP images reviewed at bedside worsening prostatomegaly and known
bilateral hydro utero nephrosis, no major actue findings. Patient was kept on IV Rocephin through the hospital stay although improved not completely resolved. Will change to course of renally adjusted dose of levofloxacin at discharge
2. ANGELINE on CKD stage unknown -patient has significant renal dysfunction on last visit due to bladder outlet obstruction and bilateral ureteral obstruction. Apparently nephrostomy tubes were attempted and unable to be done due to altered anatomy of
kidney. Finney catheter was placed which was removed on previous discharge. Patient was straight cathing himself. Patient required catheterization in hospital and Finney catheter placed for persistent retention. Bladder scan was not significantly
elevated although renal function remains elevated and CT abdomen pelvis showing enlarged prostate with worsening bilateral hydroureteronephrosis which in turn suspected from bladder outlet obstruction. Urology help appreciated -recommended
continuation of Finney catheter at discharge with follow-up in office with Dr Oscar.
3. Metastatic prostate cancer -involving sacral bone with lytic lesion s/p radiation. Involving bladder wall as well. Have pulmonary nodules of unclear status, pending PET scan with oncology office. Currently on bicalutamide therapy. Will be
continued.
4. Hyponatremia -suspecting due to low oral intake. Urine smartly ~300, urine na 40. Suspecting euvolemic hyponatremia.
5. Hyperkalemia -driven by ANGELINE suspecting. On NOE/ARB. Not on potassium supplement. No acidosis. No other meds explaining this. Potassium has normalized today
6. Generalized weakness -patient did well with physical therapy and will be appropriate for home-based physical therapy at dischargee
7. Sinus tachycardia -questioning if patient have undiagnosed VTE. Cannot do CT chest PE with CKD. Beside tachycardia no other supporting signs of palpitation/dizziness/dyspnea. Does have metastatic prostate cancer and at increased risk of VTE
nonetheless. Will check lower extremity venous Doppler and if negative will defer V/Q scan this visit.
Original Note:
Today's Communication/Plan
-
maintain finney at dc
fu outpatient with urology
Check bilateral lower extremity Doppler if negative okay to discharge home
Assessment / Plan
Assessment / Plan
IMPRESSION: 69-year-old male with recent diagnosis of metastatic prostate cancer presented from the oncology office with concerns of generalized weakness.
PLAN:
# Acute UTI ; complicated ; unclear if related to home straight cath
# 1 episode of confusion per
# Hematuria ; urine remained clean with Finney
- Head CT negative
- Continue with IV CFTX ; day 3
- Blood and urine Cx remain negative
- PSA 14.7 ( was 384 in 04/21)
- Leukocytosis with slight elevation
- continue with Finney
- Patient remained tachycardic in the 100s will check for bilateral lower extremity Dopplers
CT abdomen pelvis 06/19/2025:
IMPRESSION:
1. Moderately distended urinary bladder demonstrating moderate diffuse wall thickening and trabeculation (probably acute cystitis superimposed upon urinary bladder outlet obstruction).
2. SEVERE BILATERAL HYDROURETERONEPHROSIS secondary to urinary bladder outlet obstruction.
3. LARGE 8.6 cm PROSTATE CANCER extending posteriorly to invade the anterior wall of the rectum (increased in size since 04/18/2025 and likely causing urinary bladder outlet obstruction).
4. VERY LARGE 11.3 cm LEFT RENAL CELL CARCINOMA.
5. 1.9 cm right renal mass (possibly renal cell carcinoma).
6. Mild amount of metastatic retroperitoneal lymphadenopathy.
7. Small bilateral adrenal adenomas.
8. Severe diverticulosis in the sigmoid colon.
9. Varicoid bronchiectasis in the left lower lobe.
10. 2.3 cm left lower lobe pulmonary nodule which appears unchanged.
11. Mixed lytic and sclerotic osseous metastasis in the sacrum.
# Generalized weakness
- PT recs home pt upon dc
# ANGELINE on CKD 4 ; likely postrenal
# Hyperkalemia ; likely secondary to ANGELINE ; resolved ; continue with low potassium diet
# Left renal oncocytoma
# Urinary retention
- Serum creatinine of 2.0 on 06/01/2025 at outpatient lab, potassium was 4.5
- Urology following
- Serum creatinine improved to 1.7 today
# Metastatic prostate cancer
- Continue with home Casodex
- Status post 1 dose of Lupron in April 2024
- S/p 1 week of radiation therapy for sacral lesion
# Hyponatremia ; likely secondary to poor oral intake
- Improved with IV fluids
# Essential hypertension
# History of hypertensive urgency
- Continue home amlodipine and metoprolol
# GERD
- Continue with PPI
# History of periodontic disease
Stage 1 sacrum pressure ulcer, POA
Diet: Regular (low potassium)
DVT prophylaxis: SCDs
CODE STATUS full
Anticipated Discharge: Today
Subjective/Interval History
-
Date of Service: June 22, 2025
AFVSS. offers no new complaints today. states that he is feeling much better today
Objective Data
-
Labs:
Laboratory Results
06/22/25
06:00
WBC Pending
Hgb Pending
Hct Pending
Plt Count Pending
Sodium Pending
Potassium Pending
Chloride Pending
Carbon Dioxide Pending
BUN Pending
Creatinine Pending
Glucose Pending
Calcium Pending
Vital Signs:
Vital Signs
Temp Pulse Resp BP Pulse Ox
98.8 F 98 18 133/86 97
06/21/25 23:41 06/21/25 23:41 06/21/25 23:41 06/21/25 23:41 06/21/25 23:41
I&O
06/21/25 06/22/25 06/23/25
06:59 06:59 06:59
Intake Total 2280 / 2280 1900 / 1900
Output Total 4300 / 4300 3600 / 3600
Balance -2020 / -2020 -1700 / -1700
Review of Systems
-
History Source: Patient
All other systems: Reviewed and negative
Physical Exam
-
General: Well Nourished, No Apparent Distress, Comfortable and Conversant
HEENT: Normocephalic and Atraumatic
Respiratory: Clear to Auscultation and Non Labored Respirations
Cardiac: Regular Rhythm and S1/S2
GI: Soft, Nontender, Nondistended and Normal Bowel Sounds
Genito-urinary: Finney
Musculoskeletal: No Clubbing, No Cyanosis and No Edema
Skin: Warm and Dry
Neuro: Awake, Alert and Oriented
Psych: Calm
Data Reviewed
-
Labs: Labs Reviewed by me, Discussed with Physician and Discussed with Patient
[2025-06-22] MEDS: FLOMAX 0.4 MG PO (07:38)
[2025-06-22] MEDS: TOPROL XL 12.5 MG PO (07:38)
[2025-06-22] MEDS: COLACE 100 MG PO (07:38)
[2025-06-22] MEDS: NORVASC 5 MG PO (07:38)
[2025-06-22] MEDS: CASODEX 50 MG PO (07:38)
[2025-06-22] MEDS: PROTONIX 40 MG PO (07:38)
[2025-06-22 07:44] VITALS: BP 157/96
--- NOTE | 2025-06-22 07:59 | PN.CDI ---
CDI
- -
CDI:
Physician Documentation Request
Admit Date: 06/19/25 17:24
Dear Doctor,
Please review the following and provide your response in the progress notes.
Clinical Indicators:
- RN assessments indicates Stage 1 sacrum pressure ulcer, POA
Physician documentation of the type and location of wounds is required for compliant documentation. Based on the above clinical findings and your assessment, please provide the following in your progress note:
1. Location of the ulcer/wound, including laterality.
2. Type (etiology) of ulcer/wound:
- Diabetic ulcer
- Arterial (ischemic) ulcer
- Traumatic wound
- Venous stasis ulcer
- Pressure (decubitus) ulcer
- Other
Use of terms such as suspected, likely, concern for, or probable (associated with a specific diagnosis that is being evaluated, monitored, or treated as if it exists) are acceptable and can be coded in the inpatient setting, when documented at the
time of discharge.
Thank you,
Brenden Gan RN
CDI Specialist
Please use your independent medical judgment in providing your response.
*Source: National Pressure Ulcer Advisory Panel (NPUAP)
[2025-06-22 09:26] LABS: Hematocrit 34.6 % (39.0-52.0); Hemoglobin 11.3 g/dL (13.0-18.0); Mean Corp Hgb Conc. 32.7 g/dL (33.0-37.0); Mean Corpuscular Volume 87.2 fL (80.0-94.0); Platelet Count 656 10^3/uL (130-400); Red Cell Dist. Width 13.5 % (11.5-14.5)
[2025-06-22 09:32] LABS: Blood Urea Nitrogen 31 mg/dl (9-20); Calcium 9.0 mg/dl (8.4-10.2); Carbon Dioxide 24 mmol/L (22-30); Chloride 101 mmol/L (98-107); Estimated Creatinine Clearance 44 ml/min; Glucose 121 mg/dl (70-99); Potassium 4.7 mmol/L (3.5-5.1); Sodium 134 mmol/L (135-145); eGFR 43.10
[2025-06-22] MEDS: DULCOLAX 10 MG PO (11:19)
[2025-06-22 12:42] VITALS: BP 121/78; PULSE 107; O2SAT 98
--- NOTE | 2025-06-22 15:12 | W.DCSUMMARY ---
Addendum entered and electronically signed by Jose J Adams MD 06/24/25 13:17:
Read, reviewed, and agree. See same day progress note for additional details. Time spent coordinating care, DC planning, review of DC plan of care with resident, transition of care, review of records in EMR, med rec, consults, notes, d/w
consultants, nursing, family, and CM mins
Original Note:
Documented by User: Jose Guadalupe Gillespie MD, Resident 06/23/25 09:06
Discharge Summary
Discharge Data
Date of Admission: 06/19/25
Date of Discharge: 06/22/25
-
Pending Results: No
Hospital Course
Discharging Physician : Jose Guadalupe Gillespie MD ; Jose J Adams MD
Disposition : Home with VN
Primary care physician : Dr. Venus Gurrola
Principal Discharge diagnosis : Complicated UTI-urinalysis with pyuria and bacteriuria., ANGELINE on CKD, Hyperkalemia ,Generalized weakness , Sinus tachycardia
Chronic Discharge diagnosis :
CKD 4
Left renal oncocytoma
Urinary retention
Metastatic prostate cancer
hypertension
GERD
Hospital Course : 69-year-old male who was recently diagnosed with metastatic prostate cancer, history of hypertension, left renal oncocytoma, mild urinary incontinence presented from the oncology office with concerns of generalized weakness.
He reports that he recently started Lupron treatment with oncologist.
He completed 1 week of radiation therapy for sacral lesion in April 2025.
He had a complicated hospital stay back in March 2025 when he had an ANGELINE, hyperkalemia. At that time CT abdomen pelvis showed bilateral ureteral obstructions and there was an attempt to perform the nephrostomy however was not completed due to
difficult anatomy. There was a biopsy of left renal mass was obtained which returned showed oncocytoma.
Last month he underwent a bone biopsy for his sacral region which showed metastatic prostate adenocarcinoma. He has been following up with Dr. Buckner.
initial workup showed leukocytosis 22.3, hemoglobin of 12.3, sodium of 129, potassium 5.4, creatinine of 2.6 (creatinine was 2.0 on 06/01/2025 at outpatient lab)
UA showed signs of UTI
He was started on IV fluids and IV ceftriaxone. Urology was consulted. CT abdomen pelvis obtained; results as below.
Finney catheter placed for persistent retention. Bladder scan was 380 mL only although renal function remains elevated and CT abdomen pelvis showing enlarged prostate with worsening bilateral hydroureteronephrosis suspected from bladder outlet
obstruction.
Urology recommended to maintain finney at discharge. daily blood work shows improvement in kidney functions after finney. Patient felt overall much improvement.
He also had sinus tachycardia. Could not do CT chest PE with CKD. Beside tachycardia no other supporting signs of palpitation/dizziness/dyspnea. Does have metastatic prostate cancer and at increased risk of VTE nonetheless. US b/l Legs were done
and they came back negative.
on the day of discharge his serum creatinine was 1.7, Hemoglobin stable around 11, sodium of 134. potassium of 4.7.
He was medically stable for discharge. He was given a script to repeat BMP in 1 week and follow up with urologist,
He agreed with the plan. Return precautions were reviewed before discharge
Important imaging findings : CT Abd/pelvis Wo Iv Cont
IMPRESSION:
1. Moderately distended urinary bladder demonstrating moderate diffuse wall thickening and trabeculation (probably acute cystitis superimposed upon urinary bladder outlet obstruction).
2. SEVERE BILATERAL HYDROURETERONEPHROSIS secondary to urinary bladder outlet obstruction.
3. LARGE 8.6 cm PROSTATE CANCER extending posteriorly to invade the anterior wall of the rectum (increased in size since 04/18/2025 and likely causing urinary bladder outlet obstruction).
4. VERY LARGE 11.3 cm LEFT RENAL CELL CARCINOMA.
5. 1.9 cm right renal mass (possibly renal cell carcinoma).
6. Mild amount of metastatic retroperitoneal lymphadenopathy.
7. Small bilateral adrenal adenomas.
8. Severe diverticulosis in the sigmoid colon.
9. Varicoid bronchiectasis in the left lower lobe.
10. 2.3 cm left lower lobe pulmonary nodule which appears unchanged.
11. Mixed lytic and sclerotic osseous metastasis in the sacrum.
Procedure findings : US Periph Venous LOWER Ext Nelson:
No sonographic evidence for lower extremity venous thrombosis.
Discharge Plan
-
Patient Disposition: Home (Routine Discharge)
Discharge Diagnosis/Procedures: Complicated UTI-urinalysis with pyuria and bacteriuria., ANGELINE on CKD, Hyperkalemia ,Generalized weakness , Sinus tachycardia
Condition: Fair
Additional Diets: low potassium
Activity: As tolerated
Driving Restrictions: As prior to admission
Bathing Restrictions: None
Blood Work: bmp in 1 week
Other Services: VN
Instructions: How to Care for Your Finney Catheter, Male, Lowering the risk of a catheter-associated urinary tract infection
Referrals:
Francis Oscar MD [Active, Urology] - in less than 1 week
UNKNOWN - PT DOES,NOT KNOW [Family Provider]
Additional Discharge Medication Instructions: Take Levofloxacin 750mg 1 tablet by mouth every 2 days(48hrs) for next 3 doses to complete course of antibiotics for UTI
Please follow up with Dr. Oscar for evaluation and recommendations. ; Please maintain the Finney until follow-up with urology.
Complete Blood work; BMP in 1 week
Please fu with your pcp in 1 week.
Prescriptions:
New
levofloxacin 750 mg tablet
750 mg PO Q48H Qty: 3 0RF
Continued
metoprolol succinate 25 mg Tablet Extended Release 24 Hr
12.5 mg PO DAILY Qty: 30 0RF
tamsulosin 0.4 mg capsule
0.4 mg PO DAILY Qty: 30 0RF
amlodipine 5 mg tablet
5 mg PO DAILY Qty: 30 0RF
bicalutamide 50 mg Tablet
50 mg PO DAILY
docusate sodium [Dulcolax Stool Softener (dss)] 100 mg Capsule
100 mg PO BID
omeprazole 20 mg Capsule,Delayed Release(Dr/Ec)
20 mg PO DAILY
Discharge Orders:
Discharge Patient (As Directed); Ordered 06/22/25
Ordered By: Jose Guadalupe Gillespie
Discharge Date and Time
Discharge Date/Time: 06/22/25 16:35
Print Language: [place]

Documented by User: Jose J Adams MD 06/24/25 13:17
Discharge Summary
Discharge Data
Date of Admission: 06/19/25
Date of Discharge: 06/24/25
Discharge Plan
-
Patient Disposition: Home (Routine Discharge)
Discharge Diagnosis/Procedures: Complicated UTI-urinalysis with pyuria and bacteriuria., ANGELINE on CKD, Hyperkalemia ,Generalized weakness , Sinus tachycardia
Condition: Fair
Additional Diets: low potassium
Activity: As tolerated
Driving Restrictions: As prior to admission
Bathing Restrictions: None
Blood Work: bmp in 1 week
Other Services: VN
Instructions: How to Care for Your Finney Catheter, Male, Lowering the risk of a catheter-associated urinary tract infection
Referrals:
Francis Oscar MD [Active, Urology] - in less than 1 week
UNKNOWN - PT DOES,NOT KNOW [Family Provider]
Additional Discharge Medication Instructions: Take Levofloxacin 750mg 1 tablet by mouth every 2 days(48hrs) for next 3 doses to complete course of antibiotics for UTI
Please follow up with Dr. Oscar for evaluation and recommendations. ; Please maintain the Finney until follow-up with urology.
Complete Blood work; BMP in 1 week
Please fu with your pcp in 1 week.
Prescriptions:
New
levofloxacin 750 mg tablet
750 mg PO Q48H Qty: 3 0RF
Continued
metoprolol succinate 25 mg Tablet Extended Release 24 Hr
12.5 mg PO DAILY Qty: 30 0RF
tamsulosin 0.4 mg capsule
0.4 mg PO DAILY Qty: 30 0RF
amlodipine 5 mg tablet
5 mg PO DAILY Qty: 30 0RF
bicalutamide 50 mg Tablet
50 mg PO DAILY
docusate sodium [Dulcolax Stool Softener (dss)] 100 mg Capsule
100 mg PO BID
omeprazole 20 mg Capsule,Delayed Release(Dr/Ec)
20 mg PO DAILY
Discharge Orders:
Discharge Patient (As Directed); Ordered 06/22/25
Ordered By: Jose Guadalupe Gillespie
Discharge Date and Time
Discharge Date/Time: 06/22/25 16:35
Print Language: [place]
[2025-06-22] MEDS: STERILE WATER FOR INJECTION 10 ML IV (15:15)
[2025-06-22] MEDS: ROCEPHIN 1000 MG IV (15:15)
[2025-06-22 15:23] VITALS: BP 119/76
--- NOTE | 2025-06-22 17:35 | CM ---
MD entered order for discharge
Spoke with pt in room . He said he was ready for discharge. IMM reviewed signed on chart.
His Shena will drive him home.
PLAN Home with [facility]
== END 2025-06-22 16:35 | disposition home health service (06) | DRG 699 ==
LOC: 4 EAST ACU 17:24
PROVIDERS: Physician Assistant; ADMITTING PHYSICIAN Hospitalist; CONSULT PHYSICIAN Specialist; EMERGENCY PHYSICIAN Emergency Medicine
DX: T83.518A Infection and inflammatory reaction due to other urinary catheter, initial encounter (principal); C79.00 Secondary malignant neoplasm of unspecified kidney and renal pelvis; N39.0 Urinary tract infection, site not specified; N13.39 Other hydronephrosis; N17.9 Acute kidney failure, unspecified; N18.4 Chronic kidney disease, stage 4 (severe); C79.51 Secondary malignant neoplasm of bone; E87.1 Hypo-osmolality and hyponatremia; C79.11 Secondary malignant neoplasm of bladder; Y73.2 Prosthetic and other implants, materials and accessory gastroenterology and urology devices associated with adverse incidents; Y84.8 Other medical procedures as the cause of abnormal reaction of the patient, or of later complication, without mention of misadventure at the time of the procedure; N32.0 Bladder-neck obstruction; C61 Malignant neoplasm of prostate; L89.151 Pressure ulcer of sacral region, stage 1; E87.5 Hyperkalemia; I12.9 Hypertensive chronic kidney disease with stage 1 through stage 4 chronic kidney disease, or unspecified chronic kidney disease; K57.30 Diverticulosis of large intestine without perforation or abscess without bleeding; K21.9 Gastro-esophageal reflux disease without esophagitis; N40.0 Benign prostatic hyperplasia without lower urinary tract symptoms; W01.0XXA Fall on same level from slipping, tripping and stumbling without subsequent striking against object, initial encounter; Z79.899 Other long term (current) drug therapy; Z86.11 Personal history of tuberculosis; Z87.891 Personal history of nicotine dependence; Z92.3 Personal history of irradiation
CPT/HCPCS: 70450; 74176; 80048; 80053; 81003; 81015; 83930; 83935; 84300; 85025; 85027; 87040; 87086; 87502; 87811; 93970; 96361; 96374; 97116; 97162; 99284; G0103